=== PATIENT | male | born 1975 | race Caucasian/White ===

== ENCOUNTER 2022-12-08 11:15 | Outpatient (RCR) | payer OTHER, MEDICAID, SELFPAY ==
--- NOTE | 2022-10-06 16:41 | PT.OIE ---
Current Diagnoses Muscle weakness (generalized) (10/06/22) Strain of muscle, fascia and tendon of lower back, subsequent encounter (10/06/22) Visit Care Team Role Provider Type Allen Stauffer MD Attending Provider Non-Staff Family Provider Primary Care Provider Referring Provider Specialty: Family Practice Address: [address] , [place], [address] Email: Physical Therapy Initial Evaluation PT-OP-A Visit Information Start: 10/02/22 17:42 Freq: Status: Active Protocol: Document 10/06/22 14:34 LRN (Rec: 10/06/22 16:34 LRN [id number]) Out-Patient Physical Therapy Visit Information Visit Information Visit Type Initial Evaluation Visit Start Time 14:34 Visit Stop Time 15:31 Total Visit Minutes 57 Visit Number 1 Evaluation Information Evaluation Date 10/06/22 Precautions Precautions Depression controlled by meds, Panic disorder, OCD, High blood pressure currently under control. PT-OP-B Current Condition Start: 10/02/22 17:42 Freq: Status: Active Protocol: Document 10/06/22 14:34 LRN (Rec: 10/06/22 16:34 LRN [id number]) Current Condition History of Current Condition Onset Date 11 weeks ago. Current Complaints Can't lift anything heavy and restricted in lifting. Not back to normal. History of Current Condition LBP ranges from 1-8/10 on 0-10 scale with 10 being worst possible pain. Pt states for the first month was sore, but after 1 month slept on new mattress and woke with terrible LBP. Stopped sleeping on new bed and is now on air mattress. Has improved ability to sleep and can now sleep all night. He has been doing cobra (reduces his pain) and dog yoga pose exercises. He has been practicing good posture and not lifting anything too heavy (25#, case of water is too heavy). Leaning forward on bike increases pain R handed. Prior Treatments and Tests No testing Developmental History Developmental History Helping friend move furnature and while lowering the furnature felt sharp pain in low back. Knew he wasn't using good Body mechanics because the chair was awkward and heavy. States he has tried to help his roomate move his mattress but was not able due to LBP. Treatment Goals Patient/Caregiver Goals Pt would like to strengthen back area, and be able to ride his bike on his stationary corporate sales trainer. Prior Functional Status Baseline Function- ADL's Independent Baseline Function- Mobility Independent Baseline Function- Work/School Unemployed Baseline Function- Recreation/Hobbies Play guitar Baseline Function- Other Lift heavy objects without burning sensation in low back. Be able to help roomate move things around the house (bed frame) without onset of burning back pain. Current Functional Impairments (Reported) Functional Limitations- ADL's Lifting 20# or greater. Personal Factors Other Personal Factors That May Effect Psychological disorders ( Therapy/Recovery depression, OCD, panic disorder). PT-OP-C Subjective Start: 10/02/22 17:42 Freq: Status: Active Protocol: Document 10/06/22 14:34 LRN (Rec: 10/06/22 16:34 LRN [id number]) Patient Questionnaires Oswestry Low Back Index Oswestry Score 22 Oswestry Impairment 20 to 39% Impaired (Score 20- 39) OP-PT Pain Assessment Pain Assessment Grid Paper Pain Assessment Grid Completed Yes Location Low Back Pain Location Details Low back at sacral level and sometimes into R buttock Intensity 8 Scale Used Numeric (0 - 10) Description Aching,Burning,Sharp Description- Other Sharp pain into buttock, otherwise burning. Pain Duration With lifting or too active or sleep wrong (on memory foam) Other Pain Alleviating Factors Cobra pose PT-OP-G Mobility & Gait Start: 10/02/22 17:42 Freq: Status: Active Protocol: Document 10/06/22 14:34 LRN (Rec: 10/06/22 16:34 LRN [id number]) OP Mobility Evaluation Bed Mobility Rolling Normal Supine to and from Sit Normal Transfers Sit to Stand Independent Bed to Chair Transfers Independent PT-OP-H Neuro Start: 10/02/22 17:42 Freq: Status: Active Protocol: Document 10/06/22 14:34 LRN (Rec: 10/06/22 16:34 LRN [id number]) Sensation Evaluation Gross Sensation Gross Sensation WNL PT-OP-J Posture/Palpation/Skin Start: 10/02/22 17:42 Freq: Status: Active Protocol: Document 10/06/22 14:34 LRN (Rec: 10/06/22 16:34 LRN [id number]) Posture Evaluation Position Standing Head/C-Spine Posture Forward Head T-Spine Posture Flattened L-Spine Posture Increased Lordosis,Shifted Left Shoulder Posture (R) Elevated Scapula Posture (R) Elevated Arm Posture (L) Internally Rotated,(R) Internally Rotated Pelvis Posture Anteriorly Tilted Weight Distribution Balanced Comments Posture Comments Soft tissue bump in R UT mid position. Palpation Assessment Location Low back Palpation Location R paraspinals, Spinous processes of lumbar spine. Palpation Findings Soft Tissue Tightness Palpation Details Tender at spinous process L4 with PA glide. PT-OP-K Range of Motion Start: 10/02/22 17:42 Freq: Status: Active Protocol: Document 10/06/22 14:34 LRN (Rec: 10/06/22 16:34 LRN [id number]) Lumbar Spine Range of Motion Lumbar Spine Active Degrees Flexion 65 Extension 7 Rotation Left 3 Rotation Right 3 Lateral Flexion Left 5 ROM Limitations Soft Tissue Tightness Comments Trunk Flexion is 65 deg?s with 52 deg?s hip flexion, Trunk extension is 7deg?s with 2 deg?s hip extension. Hip Goniometric Range of Motion Hip Right Passive Testing Position Supine Straight Leg Raise 65 Internal Rotation 20 External Rotation 65 Left Passive Testing Position Supine Straight Leg Raise 65 Internal Rotation 20 External Rotation 65 PT-OP-L Special Tests Start: 10/02/22 17:42 Freq: Status: Active Protocol: Document 10/06/22 14:34 LRN (Rec: 10/06/22 16:34 LRN [id number]) Special Tests Lumbar Spine Special Tests Wayne Test Results - bilaterally Prone Press Up Test Results + Comments Decreased discomfort Manual Traction Test Results + Comments Decreased LBP Straight Leg Raise Test Results 65 bilaterally Comments Hamstring tightness Slump Test Results + Comments R LB & hip pain Standing Flexion Test Results - Comments No change with pain Vertical Spine Loading Test Results - Comments No change with pain PT-OP-M Strength Start: 10/02/22 17:42 Freq: Status: Active Protocol: Document 10/06/22 14:34 LRN (Rec: 10/06/22 16:34 LRN [id number]) Trunk Strength Trunk Manual Muscle Testing Testing Position Supine, Sidelie & Prone Core Stabilization Pt not able to maintain core stability with MMT of LE's. Hip Strength Hip Manual Muscle Testing Right Flexion (L2) 5 Normal Extension (S1) 5 Normal Abduction 5 Normal Adduction 5 Normal Left Flexion (L2) 5 Normal Extension (S1) 5 Normal Abduction 5 Normal Adduction 5 Normal PT-OP-Q Treatments Start: 10/02/22 17:42 Freq: Status: Active Protocol: Document 10/06/22 14:34 LRN (Rec: 10/06/22 16:34 LRN [id number]) Self-Care/Home Management Treatment Education Patient Education Body Mechanics,Safety Other Education Discussed results of evaluation, goals, and plan of care (POC). Pt agreeable to goals and POC. Discussed pt questions regarding yoga poses for appropriateness (bird dog, MILAN , upward dog). Activities Self-Care/Home Management Activities I/S pt in proper mechanics of transfers stand<>sit<>sup. I/ S pt in engagement of abdominal tightening prior to transfers. Discussed briefly proper lifting mechanics (load close to body, no twisting, getting close to objects, avoiding bending, use of legs to waste picker objects). PT-OP-T Assessment and Plan Start: 10/02/22 17:42 Freq: Status: Active Protocol: Document 10/06/22 14:34 LRN (Rec: 10/06/22 16:34 LRN [id number]) Physical Therapy Assessment Rehab Potential Rehabilitation Potential Good Evaluation Complexity Number of Personal Factors/Comorbidities 1-2 Number of Body Systems Impaired 4 or More Clinical Presentation at Evaluation Evolving Impairments Impairments Activity Tolerance,Pain,ROM, Soft Tissue Mobility,Strength, Transfers Goals Three Impairment Decreased strength Impairment Can't help roomate move things due to restriction in lifting things over 20#. Short Term Goal (STG) Pt will be able to maintain core stability with LE strengthening. STG Duration 11/07/22 Adjunct Political Science Instructor Goal (LTG) Strengthen pt's back to be able to lift 20# or greater without onset of burning pain. LTG Duration 12/12/22 Two Impairment LB Pain, R buttock pain Impairment Pain rated 1-8/10. Pain is 1/10 unless lifting/ moving/ride bike (<30 secs tolerated). Short Term Goal (STG) Pt will be educated in use of modalities at home (heat/ice). STG Duration 10/10/23 [facility] Goal (LTG) Be able to tolerate riding in racing bike position (on pt's stationary corporate sales trainer) for 10 minutes. LTG Duration 12/12/22 One Impairment Lacks appropriate self care HEP. Short Term Goal (STG) Pt will be educated in proper body mechanics for transfer and ADLs, and proper sitting and standing posture. STG Duration 10/17/22 [facility] Goal (LTG) Independent with a self care HEP of core/pelvic stabilization and hip stretches. LTG Duration 12/12/22 Assessment Summary Assessment Pt presents with LBP probably of soft tissue origin. The pt reports much improvement in the past week with reduction of his pain intensity and region and improved function. He shows symptoms of lumbar neural involvement with + slump and traction test. He appears to have centralized his R hip pain to his low back . He has decreased trunk & hip mobility and has core weakness limiting his function and ability to exercise. The pt will benefit from skilled physical therapy for focus on decreasing soft tissue muscle guarding and pain, improving lumbar/hip mobility and for hip/core/pelvic stabilization. Pt education will be focused on proper transfers, self care and home exercise. Physical Therapy Plan Frequency and Duration Frequency of Treatment 2x/Week Plan of Care Start Date 10/06/22 Plan of Care End Date 12/12/22 Therapeutic Interventions Therapeutic Interventions Home Exercise Program,Joint Mobilizations,Manual Therapy, Neuromuscular Re-education, Patient/Caregiver Education, Self-Care/Home Management,Soft Tissue Mobilization, Therapeutic Activities, Therapeutic Exercises Next Visit Focus/Plan Next Note Type Treatment Note Next Visit Plan Assess hip ER/IR strength. Review and issue handouts for education in proper body mechanics for transfer and ADLs, and proper sitting and standing posture. Manual lumbar traction & thoracic mobs. HEP: Correction for lumbar shift, LE neural, Piriformis/lateral hip stretches, trunk extension strengthening and core stab, End MH/IFES [L4-L5]. POC: Probable L4-L5 bulging disc rehabilitation. Decrease soft tissue muscle guarding and pain, improve lumbar (rot and cautiously with flex)/hip (PSLR, rot) mobility and for core/pelvic/hip stabilization. Pt education will be focused on proper transfers, modality use, and home exercises.
--- NOTE | 2022-10-06 16:46 | PT.OPPOC ---
Physical, Occupational & Speech Therapy At [facility] Current Diagnoses Muscle weakness (generalized) (10/06/22) Strain of muscle, fascia and tendon of lower back, subsequent encounter (10/06/22) Visit Care Team Role Provider Type Allen Stauffer MD Attending Provider Non-Staff Family Provider Primary Care Provider Referring Provider Specialty: Family Practice Address: [address] [facility], [place], [address] Email: Plan Of Care PT-OP-T Assessment and Plan Start: 10/02/22 17:42 Freq: Status: Active Protocol: Document 10/06/22 14:34 LRN (Rec: 10/06/22 16:34 LRN [id number]) Physical Therapy Assessment Rehab Potential Rehabilitation Potential Good Evaluation Complexity Number of Personal Factors/Comorbidities 1-2 Number of Body Systems Impaired 4 or More Clinical Presentation at Evaluation Evolving Impairments Impairments Activity Tolerance,Pain,ROM, Soft Tissue Mobility,Strength, Transfers Goals Three Impairment Decreased strength Impairment Can't help roomate move things due to restriction in lifting things over 20#. Short Term Goal (STG) Pt will be able to maintain core stability with LE strengthening. STG Duration 11/07/22 Halfway Goal (LTG) Strengthen pt's back to be able to lift 20# or greater without onset of burning pain. LTG Duration 12/12/22 Two Impairment LB Pain, R buttock pain Impairment Pain rated 1-8/10. Pain is 1/10 unless lifting/ moving/ride bike (<30 secs tolerated). Short Term Goal (STG) Pt will be educated in use of modalities at home (heat/ice). STG Duration 10/10/23 Halfway Goal (LTG) Be able to tolerate riding in racing bike position (on pt's stationary first aid trainer) for 10 minutes. LTG Duration 12/12/22 One Impairment Lacks appropriate self care HEP. Short Term Goal (STG) Pt will be educated in proper body mechanics for transfer and ADLs, and proper sitting and standing posture. STG Duration 10/17/22 [employer] Goal (LTG) Independent with a self care HEP of core/pelvic stabilization and hip stretches. LTG Duration 12/12/22 Assessment Summary Assessment Pt presents with LBP probably of soft tissue origin. The pt reports much improvement in the past week with reduction of his pain intensity and region and improved function. He shows symptoms of lumbar neural involvement with + slump and traction test. He appears to have centralized his R hip pain to his low back . He has decreased trunk & hip mobility and has core weakness limiting his function and ability to exercise. The pt will benefit from skilled physical therapy for focus on decreasing soft tissue muscle guarding and pain, improving lumbar/hip mobility and for hip/core/pelvic stabilization. Pt education will be focused on proper transfers, self care and home exercise. Physical Therapy Plan Frequency and Duration Frequency of Treatment 2x/Week Plan of Care Start Date 10/06/22 Plan of Care End Date 12/12/22 Therapeutic Interventions Therapeutic Interventions Home Exercise Program,Joint Mobilizations,Manual Therapy, Neuromuscular Re-education, Patient/Caregiver Education, Self-Care/Home Management,Soft Tissue Mobilization, Therapeutic Activities, Therapeutic Exercises Next Visit Focus/Plan Next Note Type Treatment Note Next Visit Plan Assess hip ER/IR strength. Review and issue handouts for education in proper body mechanics for transfer and ADLs, and proper sitting and standing posture. Manual lumbar traction & thoracic mobs. HEP: Correction for lumbar shift, LE neural, Piriformis/lateral hip stretches, trunk extension strengthening and core stab, End MH/IFES [L4-L5]. POC: Probable L4-L5 bulging disc rehabilitation. Decrease soft tissue muscle guarding and pain, improve lumbar (rot and cautiously with flex)/hip (PSLR, rot) mobility and for core/pelvic/hip stabilization. Pt education will be focused on proper transfers, modality use, and home exercises. Plan of Care Dates Plan of Care Start Date 10/06/22 Plan of Care End Date 12/12/22 Electronically Signed by: Karen Gomez, PT 10/06/22 4728 If you are in agreement with this Plan of Care, please return a signed and dated copy. I have reviewed this Plan of Care and certify that the skilled therapy services above are required to meet the patient?s needs. Physician Signature Date Printed Name and Credentials Clinical Instructor Signature Printed Name and Credentials
--- NOTE | 2022-10-09 12:18 | PT.OTN ---
Current Diagnoses Muscle weakness (generalized) (10/09/22) Strain of muscle, fascia and tendon of lower back, subsequent encounter (10/09/22) Physical Therapy Treatment Note PT-OP-A Visit Information Start: 10/02/22 17:42 Freq: Status: Active Protocol: Document 10/09/22 11:18 LRN (Rec: 10/09/22 12:16 LRN [id number]) Out-Patient Physical Therapy Visit Information Visit Information Visit Type Treatment Note Visit Start Time 11:19 Visit Stop Time 12:06 Total Visit Minutes 47 Visit Number 2 Evaluation Information Evaluation Date 10/06/22 Precautions Precautions Depression controlled by meds, Panic disorder, OCD, High blood pressure currently under control. PT-OP-B Current Condition Start: 10/02/22 17:42 Freq: Status: Active Protocol: Document 10/06/22 14:34 LRN (Rec: 10/06/22 16:34 LRN [id number]) Current Condition History of Current Condition Onset Date 11 weeks ago. Current Complaints Can't lift anything heavy and restricted in lifting. Not back to normal. History of Current Condition LBP ranges from 1-8/10 on 0-10 scale with 10 being worst possible pain. Pt states for the first month was sore, but after 1 month slept on new mattress and woke with terrible LBP. Stopped sleeping on new bed and is now on air mattress. Has improved ability to sleep and can now sleep all night. He has been doing cobra (reduces his pain) and dog yoga pose exercises. He has been practicing good posture and not lifting anything too heavy (25#, case of water is too heavy). Leaning forward on bike increases pain R handed. Prior Treatments and Tests No testing Developmental History Developmental History Helping friend move furnature and while lowering the furnature felt sharp pain in low back. Knew he wasn't using good Body mechanics because the chair was awkward and heavy. States he has tried to help his roomate move his mattress but was not able due to LBP. Treatment Goals Patient/Caregiver Goals Pt would like to strengthen back area, and be able to ride his bike on his stationary new product trainer. Prior Functional Status Baseline Function- ADL's Independent Baseline Function- Mobility Independent Baseline Function- Work/School Unemployed Baseline Function- Recreation/Hobbies Play guitar Baseline Function- Other Lift heavy objects without burning sensation in low back. Be able to help roomate move things around the house (bed frame) without onset of burning back pain. Current Functional Impairments (Reported) Functional Limitations- ADL's Lifting 20# or greater. Personal Factors Other Personal Factors That May Effect Psychological disorders ( Therapy/Recovery depression, OCD, panic disorder). PT-OP-C Subjective Start: 10/02/22 17:42 Freq: Status: Active Protocol: Document 10/09/22 11:18 LRN (Rec: 10/09/22 12:16 LRN [id number]) OP-PT Subjective Patient Comments Patient Comments Pain LB rated 1/10. c/o pain of LB and slightly into the R hip. Patient Reported Progress Same PT-OP-G Mobility & Gait Start: 10/02/22 17:42 Freq: Status: Active Protocol: Document 10/06/22 14:34 LRN (Rec: 10/06/22 16:34 LRN [id number]) OP Mobility Evaluation Bed Mobility Rolling Normal Supine to and from Sit Normal Transfers Sit to Stand Independent Bed to Chair Transfers Independent PT-OP-H Neuro Start: 10/02/22 17:42 Freq: Status: Active Protocol: Document 10/06/22 14:34 LRN (Rec: 10/06/22 16:34 LRN [id number]) Sensation Evaluation Gross Sensation Gross Sensation WNL PT-OP-J Posture/Palpation/Skin Start: 10/02/22 17:42 Freq: Status: Active Protocol: Document 10/06/22 14:34 LRN (Rec: 10/06/22 16:34 LRN [id number]) Posture Evaluation Position Standing Head/C-Spine Posture Forward Head T-Spine Posture Flattened L-Spine Posture Increased Lordosis,Shifted Left Shoulder Posture (R) Elevated Scapula Posture (R) Elevated Arm Posture (L) Internally Rotated,(R) Internally Rotated Pelvis Posture Anteriorly Tilted Weight Distribution Balanced Comments Posture Comments Soft tissue bump in R UT mid position. Palpation Assessment Location Low back Palpation Location R paraspinals, Spinous processes of lumbar spine. Palpation Findings Soft Tissue Tightness Palpation Details Tender at spinous process L4 with PA glide. PT-OP-K Range of Motion Start: 10/02/22 17:42 Freq: Status: Active Protocol: Document 10/06/22 14:34 LRN (Rec: 10/06/22 16:34 LRN [id number]) Lumbar Spine Range of Motion Lumbar Spine Active Degrees Flexion 65 Extension 7 Rotation Left 3 Rotation Right 3 Lateral Flexion Left 5 ROM Limitations Soft Tissue Tightness Comments Trunk Flexion is 65 deg?s with 52 deg?s hip flexion, Trunk extension is 7deg?s with 2 deg?s hip extension. Hip Goniometric Range of Motion Hip Right Passive Testing Position Supine Straight Leg Raise 65 Internal Rotation 20 External Rotation 65 Left Passive Testing Position Supine Straight Leg Raise 65 Internal Rotation 20 External Rotation 65 PT-OP-L Special Tests Start: 10/02/22 17:42 Freq: Status: Active Protocol: Document 10/06/22 14:34 LRN (Rec: 10/06/22 16:34 LRN [id number]) Special Tests Lumbar Spine Special Tests Wayne Test Results - bilaterally Prone Press Up Test Results + Comments Decreased discomfort Manual Traction Test Results + Comments Decreased LBP Straight Leg Raise Test Results 65 bilaterally Comments Hamstring tightness Slump Test Results + Comments R LB & hip pain Standing Flexion Test Results - Comments No change with pain Vertical Spine Loading Test Results - Comments No change with pain PT-OP-M Strength Start: 10/02/22 17:42 Freq: Status: Active Protocol: Document 10/09/22 11:18 LRN (Rec: 10/09/22 12:16 LRN [id number]) Hip Strength Hip Manual Muscle Testing Right External Rotation 4 Good Internal Rotation 3+ Fair+ Left External Rotation 4 Good Internal Rotation 3+ Fair+ PT-OP-Q Treatments Start: 10/02/22 17:42 Freq: Status: Active Protocol: Document 10/09/22 11:18 LRN (Rec: 10/09/22 12:16 LRN [id number]) Therapeutic Exercises Prone Exercises TA tightnening Prone Exercise Name TA tightening Reps/Minutes 10SH x 10 Press Ups Prone Exercise Name Prone press ups Reps/Minutes 10x Comments Reduction of pain slightly from L/S traction Other Exercises Transfer training Other Exercise Name Review of proper transfer training for Prone>Sit>Stand Comments Cuing needed for pt to keep TA tight and move legs together. Manual Therapy Treatment Soft Tissue Mobilization Sacral Balancing Body Location Sacrum/innominates Mobilization Type Myofascial Release,Sustained Pressure Intensity/Depth Superficial to Moderate Body Position Prone Comments Infer mob & PA of R Sacral sulcus. PA of R TINA. PA of R Ishium 6 pt balancing of sacrum. Manual Traction Lumbar Details Minimal L/S traction Body Position Supine Reps/Duration 2' Comments Increase in pain with traction of minimal amount. Self-Care/Home Management Treatment Education Other Education Education in proper body mechanics for transfer and ADLs, and proper sitting and standing posture. Activities Self-Care/Home Management Activities Reviewed and issued handouts for education in proper body mechanics for transfer and ADLs, and proper sitting and standing posture. PT-OP-T Assessment and Plan Start: 10/02/22 17:42 Freq: Status: Active Protocol: Document 10/09/22 11:18 LRN (Rec: 10/09/22 12:16 LRN [id number]) Physical Therapy Assessment Goals Three Impairment Decreased strength Impairment Can't help roomate move things due to restriction in lifting things over 20#. Short Term Goal (STG) Pt will be able to maintain core stability with LE strengthening. STG Duration 11/07/22 [employer] Goal (LTG) Strengthen pt's back to be able to lift 20# or greater without onset of burning pain. LTG Duration 12/12/22 Two Impairment LB Pain, R buttock pain Impairment Pain rated 1-8/10. Pain is 1/10 unless lifting/ moving/ride bike (<30 secs tolerated). Short Term Goal (STG) Pt will be educated in use of modalities at home (heat/ice). STG Duration 10/10/23 [facility] Goal (LTG) Be able to tolerate riding in racing bike position (on pt's stationary new product trainer) for 10 minutes. LTG Duration 12/12/22 One Impairment Lacks appropriate self care HEP. Short Term Goal (STG) Pt will be educated in proper body mechanics for transfer and ADLs, and proper sitting and standing posture. STG Duration 10/17/22 (10/09/22: MET GOAL) [employer] Goal (LTG) Independent with a self care HEP of core/pelvic stabilization and hip stretches. LTG Duration 12/12/22 Assessment Summary Assessment LBP probably of soft tissue origin, but sacrum and thoracolumbar spine in L rotation. LBP increased with manual L/S traciton. Pt hip ER is slightly weak on the left, and hip IR is weak bilaterally. Pt very receptive to posture/body mechanics/ADL training. Able to mostly balance Sacrum, Sacral sulcus restriction with inferior glide,mostly R. Physical Therapy Plan Frequency and Duration Frequency of Treatment 2x/Week Plan of Care Start Date 10/06/22 Plan of Care End Date 12/12/22 Next Visit Focus/Plan Next Note Type Treatment Note Next Visit Plan Educated pt in use of modalities at home (heat/ice). Manual thoracic mobs to correct R rotation if needed. HEP: Correction for lumbar shift, LE neural/hamstring stretch, Piriformis/lateral hip stretches, Carson ext program (trunk extension strengthening) and core stab, Try End MH/IFES [L4-L5]. POC: Probable L4-L5 bulging disc rehabilitation. Decrease soft tissue muscle guarding and pain, improve lumbar (rot and cautiously with flex)/hip (PSLR, rot) mobility and for core/pelvic/hip stabilization. Pt education will be focused on proper transfers, modality use, and home exercises.
--- NOTE | 2022-10-13 14:50 | PT.OTN ---
Current Diagnoses Muscle weakness (generalized) (10/13/22) Strain of muscle, fascia and tendon of lower back, subsequent encounter (10/13/22) Physical Therapy Treatment Note PT-OP-A Visit Information Start: 10/02/22 17:42 Freq: Status: Active Protocol: Document 10/13/22 13:49 LRN (Rec: 10/13/22 14:33 LRN [id number]) Out-Patient Physical Therapy Visit Information Visit Information Visit Type Treatment Note Visit Start Time 13:49 Visit Stop Time 14:32 Total Visit Minutes 43 Visit Number 3 Evaluation Information Evaluation Date 10/06/22 Precautions Precautions Depression controlled by meds, Panic disorder, OCD, High blood pressure currently under control. PT-OP-B Current Condition Start: 10/02/22 17:42 Freq: Status: Active Protocol: Document 10/06/22 14:34 LRN (Rec: 10/06/22 16:34 LRN [id number]) Current Condition History of Current Condition Onset Date 11 weeks ago. Current Complaints Can't lift anything heavy and restricted in lifting. Not back to normal. History of Current Condition LBP ranges from 1-8/10 on 0-10 scale with 10 being worst possible pain. Pt states for the first month was sore, but after 1 month slept on new mattress and woke with terrible LBP. Stopped sleeping on new bed and is now on air mattress. Has improved ability to sleep and can now sleep all night. He has been doing cobra (reduces his pain) and dog yoga pose exercises. He has been practicing good posture and not lifting anything too heavy (25#, case of water is too heavy). Leaning forward on bike increases pain R handed. Prior Treatments and Tests No testing Developmental History Developmental History Helping friend move furnature and while lowering the furnature felt sharp pain in low back. Knew he wasn't using good Body mechanics because the chair was awkward and heavy. States he has tried to help his roomate move his mattress but was not able due to LBP. Treatment Goals Patient/Caregiver Goals Pt would like to strengthen back area, and be able to ride his bike on his stationary crew trainer. Prior Functional Status Baseline Function- ADL's Independent Baseline Function- Mobility Independent Baseline Function- Work/School Unemployed Baseline Function- Recreation/Hobbies Play guitar Baseline Function- Other Lift heavy objects without burning sensation in low back. Be able to help roomate move things around the house (bed frame) without onset of burning back pain. Current Functional Impairments (Reported) Functional Limitations- ADL's Lifting 20# or greater. Personal Factors Other Personal Factors That May Effect Psychological disorders ( Therapy/Recovery depression, OCD, panic disorder). PT-OP-C Subjective Start: 10/02/22 17:42 Freq: Status: Active Protocol: Document 10/13/22 13:49 LRN (Rec: 10/13/22 14:33 LRN [id number]) OP-PT Subjective Patient Comments Patient Comments States since last treatment, his LB is not as tight. Pain in LB is /10. PT-OP-G Mobility & Gait Start: 10/02/22 17:42 Freq: Status: Active Protocol: Document 10/06/22 14:34 LRN (Rec: 10/06/22 16:34 LRN [id number]) OP Mobility Evaluation Bed Mobility Rolling Normal Supine to and from Sit Normal Transfers Sit to Stand Independent Bed to Chair Transfers Independent PT-OP-H Neuro Start: 10/02/22 17:42 Freq: Status: Active Protocol: Document 10/06/22 14:34 LRN (Rec: 10/06/22 16:34 LRN [id number]) Sensation Evaluation Gross Sensation Gross Sensation WNL PT-OP-J Posture/Palpation/Skin Start: 10/02/22 17:42 Freq: Status: Active Protocol: Document 10/06/22 14:34 LRN (Rec: 10/06/22 16:34 LRN [id number]) Posture Evaluation Position Standing Head/C-Spine Posture Forward Head T-Spine Posture Flattened L-Spine Posture Increased Lordosis,Shifted Left Shoulder Posture (R) Elevated Scapula Posture (R) Elevated Arm Posture (L) Internally Rotated,(R) Internally Rotated Pelvis Posture Anteriorly Tilted Weight Distribution Balanced Comments Posture Comments Soft tissue bump in R UT mid position. Palpation Assessment Location Low back Palpation Location R paraspinals, Spinous processes of lumbar spine. Palpation Findings Soft Tissue Tightness Palpation Details Tender at spinous process L4 with PA glide. PT-OP-K Range of Motion Start: 10/02/22 17:42 Freq: Status: Active Protocol: Document 10/06/22 14:34 LRN (Rec: 10/06/22 16:34 LRN [id number]) Lumbar Spine Range of Motion Lumbar Spine Active Degrees Flexion 65 Extension 7 Rotation Left 3 Rotation Right 3 Lateral Flexion Left 5 ROM Limitations Soft Tissue Tightness Comments Trunk Flexion is 65 deg?s with 52 deg?s hip flexion, Trunk extension is 7deg?s with 2 deg?s hip extension. Hip Goniometric Range of Motion Hip Right Passive Testing Position Supine Straight Leg Raise 65 Internal Rotation 20 External Rotation 65 Left Passive Testing Position Supine Straight Leg Raise 65 Internal Rotation 20 External Rotation 65 PT-OP-L Special Tests Start: 10/02/22 17:42 Freq: Status: Active Protocol: Document 10/06/22 14:34 LRN (Rec: 10/06/22 16:34 LRN [id number]) Special Tests Lumbar Spine Special Tests Wayne Test Results - bilaterally Prone Press Up Test Results + Comments Decreased discomfort Manual Traction Test Results + Comments Decreased LBP Straight Leg Raise Test Results 65 bilaterally Comments Hamstring tightness Slump Test Results + Comments R LB & hip pain Standing Flexion Test Results - Comments No change with pain Vertical Spine Loading Test Results - Comments No change with pain PT-OP-M Strength Start: 10/02/22 17:42 Freq: Status: Active Protocol: Document 10/09/22 11:18 LRN (Rec: 10/09/22 12:16 LRN [id number]) Hip Strength Hip Manual Muscle Testing Right External Rotation 4 Good Internal Rotation 3+ Fair+ Left External Rotation 4 Good Internal Rotation 3+ Fair+ PT-OP-Q Treatments Start: 10/02/22 17:42 Freq: Status: Active Protocol: Document 10/13/22 13:49 LRN (Rec: 10/13/22 14:33 LRN [id number]) Therapeutic Exercises Supine Exercises LE neural/Hamstring stretch Supine Exercise Name LE neural/HS stretch, L>R Side bilateral Reps/Minutes 5' Comments Extra time to determine max tolerated stretch. Prone Exercises TA tightnening Prone Exercise Name TA tightening Reps/Minutes 10SH x 10 Press Ups Prone Exercise Name Prone press ups Reps/Minutes 10x Comments Reduction of pain slightly from L/S traction Manual Therapy Treatment Soft Tissue Mobilization Sacral Balancing Body Location Sacrum/innominates Mobilization Type Myofascial Release,Sustained Pressure Intensity/Depth Superficial to Moderate Body Position Prone Comments Infer mob & PA of R Sacral sulcus. PA of R TINA. PA of R Ishium 6 pt balancing of sacrum. Self-Care/Home Management Treatment Education Other Education I/S pt in stretch to R UT with c/s SB stretch. Activities Self-Care/Home Management Activities Issued & reviewed HEP: LE neural/hamstring, Piriformis, lateral hip, and Iliopsoas stretch. PT-OP-T Assessment and Plan Start: 10/02/22 17:42 Freq: Status: Active Protocol: Document 10/13/22 13:49 LRN (Rec: 10/13/22 14:33 LRN [id number]) Physical Therapy Assessment Goals Three Impairment Decreased strength Impairment Can't help roomate move things due to restriction in lifting things over 20#. Short Term Goal (STG) Pt will be able to maintain core stability with LE strengthening. STG Duration 11/07/22 [facility] Goal (LTG) Strengthen pt's back to be able to lift 20# or greater without onset of burning pain. LTG Duration 12/12/22 Two Impairment LB Pain, R buttock pain Impairment Pain rated 1-8/10. Pain is 1/10 unless lifting/ moving/ride bike (<30 secs tolerated). Short Term Goal (STG) Pt will be educated in use of modalities at home (heat/ice). STG Duration 10/10/23 Director Utilization Management Goal (LTG) Be able to tolerate riding in racing bike position (on pt's stationary crew trainer) for 10 minutes. LTG Duration 12/12/22 One Impairment Lacks appropriate self care HEP. Short Term Goal (STG) Pt will be educated in proper body mechanics for transfer and ADLs, and proper sitting and standing posture. STG Duration 10/17/22 (10/09/22: MET GOAL) [facility] Goal (LTG) Independent with a self care HEP of core/pelvic stabilization and hip stretches. 10/13/22: HEP: LE neural/ hamstring, Piriformis, lateral hip, and Iliopsoas stretch. LTG Duration 12/12/22 progressed Progress Towards Goals Progress Comments Progressed HEP. Assessment Summary Assessment No lumbar shift noted. R shoulder is elevated, pt reports hurting it 20 yrs ago. No c/o LBP with hip stretches. Ms tone normalizing in low back and pelvis. Sacrum in mild L rotation with decreased mobility at R Sacral sulcus, corrected with manual therapy. Pt is probably ready to begin core strengthening and progression towards improving ability to lift and carry objects. His R shoulder is elevated, causing ms imbalance in length/tension ratio of thoracic R vs L paraspinals. Physical Therapy Plan Next Visit Focus/Plan Next Note Type Treatment Note Next Visit Plan Review previously issued HEP of LE neural/hamstring, Piriformis, lateral hip, and Iliopsoas stretch. Educate pt in use of modalities at home (heat/ice). Manual thoracic mobs to correct R rotation if needed. HEP: R UT stretch and scapular depression. Carson ext program (trunk extension strengthening) and core stab, Try End MH/IFES [L4-L5]. POC: Probable L4-L5 bulging disc rehabilitation. Decrease soft tissue muscle guarding and pain, improve lumbar (rot and cautiously with flex)/hip (PSLR, rot) mobility and for core/pelvic/hip stabilization. Pt education will be focused on proper transfers, modality use, and home exercises.
--- NOTE | 2022-10-16 12:15 | PT.OTN ---
Current Diagnoses Muscle weakness (generalized) (10/16/22) Strain of muscle, fascia and tendon of lower back, subsequent encounter (10/16/22) Physical Therapy Treatment Note PT-OP-A Visit Information Start: 10/02/22 17:42 Freq: Status: Active Protocol: Document 10/16/22 11:18 LRN (Rec: 10/16/22 12:12 LRN [id number]) Out-Patient Physical Therapy Visit Information Visit Information Visit Type Treatment Note Visit Start Time 11:18 Visit Stop Time 12:05 Total Visit Minutes 48 Visit Number 4 Evaluation Information Evaluation Date 10/06/22 Precautions Precautions Depression controlled by meds, Panic disorder, OCD, High blood pressure currently under control. PT-OP-B Current Condition Start: 10/02/22 17:42 Freq: Status: Active Protocol: Document 10/06/22 14:34 LRN (Rec: 10/06/22 16:34 LRN [id number]) Current Condition History of Current Condition Onset Date 11 weeks ago. Current Complaints Can't lift anything heavy and restricted in lifting. Not back to normal. History of Current Condition LBP ranges from 1-8/10 on 0-10 scale with 10 being worst possible pain. Pt states for the first month was sore, but after 1 month slept on new mattress and woke with terrible LBP. Stopped sleeping on new bed and is now on air mattress. Has improved ability to sleep and can now sleep all night. He has been doing cobra (reduces his pain) and dog yoga pose exercises. He has been practicing good posture and not lifting anything too heavy (25#, case of water is too heavy). Leaning forward on bike increases pain R handed. Prior Treatments and Tests No testing Developmental History Developmental History Helping friend move furnature and while lowering the furnature felt sharp pain in low back. Knew he wasn't using good Body mechanics because the chair was awkward and heavy. States he has tried to help his roomate move his mattress but was not able due to LBP. Treatment Goals Patient/Caregiver Goals Pt would like to strengthen back area, and be able to ride his bike on his stationary systems trainer. Prior Functional Status Baseline Function- ADL's Independent Baseline Function- Mobility Independent Baseline Function- Work/School Unemployed Baseline Function- Recreation/Hobbies Play guitar Baseline Function- Other Lift heavy objects without burning sensation in low back. Be able to help roomate move things around the house (bed frame) without onset of burning back pain. Current Functional Impairments (Reported) Functional Limitations- ADL's Lifting 20# or greater. Personal Factors Other Personal Factors That May Effect Psychological disorders ( Therapy/Recovery depression, OCD, panic disorder). PT-OP-C Subjective Start: 10/02/22 17:42 Freq: Status: Active Protocol: Document 10/16/22 11:18 LRN (Rec: 10/16/22 12:12 LRN [id number]) OP-PT Subjective Patient Comments Patient Comments Thinks the stretches are helping because there are times it feels normal and times it feels better. Currently R LBP is 1/10 in R PSIS. States was pulling trash can out and the R LB didn't hurt. PT-OP-G Mobility & Gait Start: 10/02/22 17:42 Freq: Status: Active Protocol: Document 10/06/22 14:34 LRN (Rec: 10/06/22 16:34 LRN [id number]) OP Mobility Evaluation Bed Mobility Rolling Normal Supine to and from Sit Normal Transfers Sit to Stand Independent Bed to Chair Transfers Independent PT-OP-H Neuro Start: 10/02/22 17:42 Freq: Status: Active Protocol: Document 10/06/22 14:34 LRN (Rec: 10/06/22 16:34 LRN [id number]) Sensation Evaluation Gross Sensation Gross Sensation WNL PT-OP-J Posture/Palpation/Skin Start: 10/02/22 17:42 Freq: Status: Active Protocol: Document 10/06/22 14:34 LRN (Rec: 10/06/22 16:34 LRN [id number]) Posture Evaluation Position Standing Head/C-Spine Posture Forward Head T-Spine Posture Flattened L-Spine Posture Increased Lordosis,Shifted Left Shoulder Posture (R) Elevated Scapula Posture (R) Elevated Arm Posture (L) Internally Rotated,(R) Internally Rotated Pelvis Posture Anteriorly Tilted Weight Distribution Balanced Comments Posture Comments Soft tissue bump in R UT mid position. Palpation Assessment Location Low back Palpation Location R paraspinals, Spinous processes of lumbar spine. Palpation Findings Soft Tissue Tightness Palpation Details Tender at spinous process L4 with PA glide. PT-OP-K Range of Motion Start: 10/02/22 17:42 Freq: Status: Active Protocol: Document 10/06/22 14:34 LRN (Rec: 10/06/22 16:34 LRN [id number]) Lumbar Spine Range of Motion Lumbar Spine Active Degrees Flexion 65 Extension 7 Rotation Left 3 Rotation Right 3 Lateral Flexion Left 5 ROM Limitations Soft Tissue Tightness Comments Trunk Flexion is 65 deg?s with 52 deg?s hip flexion, Trunk extension is 7deg?s with 2 deg?s hip extension. Hip Goniometric Range of Motion Hip Right Passive Testing Position Supine Straight Leg Raise 65 Internal Rotation 20 External Rotation 65 Left Passive Testing Position Supine Straight Leg Raise 65 Internal Rotation 20 External Rotation 65 PT-OP-L Special Tests Start: 10/02/22 17:42 Freq: Status: Active Protocol: Document 10/06/22 14:34 LRN (Rec: 10/06/22 16:34 LRN [id number]) Special Tests Lumbar Spine Special Tests Wayne Test Results - bilaterally Prone Press Up Test Results + Comments Decreased discomfort Manual Traction Test Results + Comments Decreased LBP Straight Leg Raise Test Results 65 bilaterally Comments Hamstring tightness Slump Test Results + Comments R LB & hip pain Standing Flexion Test Results - Comments No change with pain Vertical Spine Loading Test Results - Comments No change with pain PT-OP-M Strength Start: 10/02/22 17:42 Freq: Status: Active Protocol: Document 10/09/22 11:18 LRN (Rec: 10/09/22 12:16 LRN [id number]) Hip Strength Hip Manual Muscle Testing Right External Rotation 4 Good Internal Rotation 3+ Fair+ Left External Rotation 4 Good Internal Rotation 3+ Fair+ PT-OP-Q Treatments Start: 10/02/22 17:42 Freq: Status: Active Protocol: Document 10/16/22 11:18 LRN (Rec: 10/16/22 12:12 LRN [id number]) Therapeutic Exercises Supine Exercises Ilipsoas stretch Supine Exercise Name Iliopsoas stretch Side bilateral Reps/Minutes 5' Comments Extra time to determine max tolerated stretch Lateral Hip stretch Supine Exercise Name Lateral Hip Stretch Side bilateral Reps/Minutes 4' Comments Cuing for holding time 30 to 60 secs if tolerated Piriformis stretch Supine Exercise Name Piriformis stretch Side bilateral Reps/Minutes 4' Comments Cuing for holding time 30 to 60 secs if tolerated LE neural/Hamstring stretch Supine Exercise Name LE neural/HS stretch, L>R Side bilateral Reps/Minutes 4' Comments Extra time to determine max tolerated stretch. Prone Exercises Press Ups Prone Exercise Name Prone press ups Reps/Minutes 10x Comments Reduction of pain slightly from L/S traction Sitting Exercises R scapular depression Sitting Exercise Name Active scap depresion Side right Equipment Used Mirror Reps/Minutes 8 R UT stretch Sitting Exercise Name L SB of head while Sit on R hand and hold R hand w/opp hand Side right Reps/Minutes 6' Comments Extra time for training and much cuing to get proper stretch Manual Therapy Treatment Joint Mobilizations Lumbar Spine Joint Correction of L rot, and L3 for PA glide Reps/Duration 7' Comments Extra time spent at L3 for PA glide. T/S spine Joint Correction for mild L rot Reps/Duration 6' Self-Care/Home Management Treatment Education Patient Education Pain Management Other Education Educated in use of modalities for pain management and discussed in general RICE treatment for inujuries. Activities Self-Care/Home Management Activities Hand out issued for self RICE treatment for injuries. Issue and reviewed HEP: R UT, Levator scap and Scapular depression ex. PT-OP-T Assessment and Plan Start: 10/02/22 17:42 Freq: Status: Active Protocol: Document 10/16/22 11:18 LRN (Rec: 10/16/22 12:12 LRN [id number]) Physical Therapy Assessment Goals Three Impairment Decreased strength Impairment Can't help roomate move things due to restriction in lifting things over 20#. Short Term Goal (STG) Pt will be able to maintain core stability with LE strengthening. STG Duration 11/07/22 Half-Way Goal (LTG) Strengthen pt's back to be able to lift 20# or greater without onset of burning pain. LTG Duration 12/12/22 Two Impairment LB Pain, R buttock pain Impairment Pain rated 1-8/10. Pain is 1/10 unless lifting/ moving/ride bike (<30 secs tolerated). Short Term Goal (STG) Pt will be educated in use of modalities at home (heat/ice). 10/16/22: Educated in use of modalities for pain management and discussed in general RICE treatment for inujuries. STG Duration 10/10/23 (10/16/22: MET GOAL ) Shook Splicer Goal (LTG) Be able to tolerate riding in racing bike position (on pt's stationary systems trainer) for 10 minutes. LTG Duration 12/12/22 One Impairment Lacks appropriate self care HEP. Short Term Goal (STG) Pt will be educated in proper body mechanics for transfer and ADLs, and proper sitting and standing posture. STG Duration 10/17/22 (10/09/22: MET GOAL) Half-Way Goal (LTG) Independent with a self care HEP of core/pelvic stabilization and hip stretches. 10/13/22: HEP: LE neural/ hamstring, Piriformis, lateral hip, and Iliopsoas stretch; R UT stretch and R scap depression. LTG Duration 12/12/22 progressed Progress Towards Goals Progress Comments Progressing pt education and HEP. Functional improvement. Assessment Summary Assessment Pt able to perform LE neural/ hamstring, Piriformis, lateral hip, and Iliopsoas stretch without difficulty and appeared to know them well; therefore pt is being consistent with his HEP. Physical Therapy Plan Frequency and Duration Frequency of Treatment 2x/Week Plan of Care Start Date 10/06/22 Plan of Care End Date 12/12/22 Next Visit Focus/Plan Next Note Type Treatment Note Next Visit Plan Assess response to manual thoracic mobs to correct L rotation if needed. Review R UT stretch and scapular depression. Carson ext program (trunk extension strengthening) and core stab, Try End MH/IFES [L4-L5]. POC: Probable L4-L5 bulging disc rehabilitation. Decrease soft tissue muscle guarding and pain, improve lumbar (rot and cautiously with flex)/hip (PSLR, rot) mobility and for core/pelvic/hip stabilization. Pt education focus on proper transfers, modality use, and home exercises.
--- NOTE | 2022-10-20 17:25 | PT.OTN ---
Current Diagnoses Muscle weakness (generalized) (10/20/22) Strain of muscle, fascia and tendon of lower back, subsequent encounter (10/20/22) Physical Therapy Treatment Note PT-OP-A Visit Information Start: 10/02/22 17:42 Freq: Status: Active Protocol: Document 10/20/22 13:51 LRN (Rec: 10/20/22 14:37 LRN [id number]) Out-Patient Physical Therapy Visit Information Visit Information Visit Type Treatment Note Visit Start Time 13:51 Visit Stop Time 14:38 Total Visit Minutes 47 Visit Number 5 Evaluation Information Evaluation Date 10/06/22 Precautions Precautions Depression controlled by meds, Panic disorder, OCD, High blood pressure currently under control. PT-OP-B Current Condition Start: 10/02/22 17:42 Freq: Status: Active Protocol: Document 10/06/22 14:34 LRN (Rec: 10/06/22 16:34 LRN [id number]) Current Condition History of Current Condition Onset Date 11 weeks ago. Current Complaints Can't lift anything heavy and restricted in lifting. Not back to normal. History of Current Condition LBP ranges from 1-8/10 on 0-10 scale with 10 being worst possible pain. Pt states for the first month was sore, but after 1 month slept on new mattress and woke with terrible LBP. Stopped sleeping on new bed and is now on air mattress. Has improved ability to sleep and can now sleep all night. He has been doing cobra (reduces his pain) and dog yoga pose exercises. He has been practicing good posture and not lifting anything too heavy (25#, case of water is too heavy). Leaning forward on bike increases pain R handed. Prior Treatments and Tests No testing Developmental History Developmental History Helping friend move furnature and while lowering the furnature felt sharp pain in low back. Knew he wasn't using good Body mechanics because the chair was awkward and heavy. States he has tried to help his roomate move his mattress but was not able due to LBP. Treatment Goals Patient/Caregiver Goals Pt would like to strengthen back area, and be able to ride his bike on his stationary field trainer. Prior Functional Status Baseline Function- ADL's Independent Baseline Function- Mobility Independent Baseline Function- Work/School Unemployed Baseline Function- Recreation/Hobbies Play guitar Baseline Function- Other Lift heavy objects without burning sensation in low back. Be able to help roomate move things around the house (bed frame) without onset of burning back pain. Current Functional Impairments (Reported) Functional Limitations- ADL's Lifting 20# or greater. Personal Factors Other Personal Factors That May Effect Psychological disorders ( Therapy/Recovery depression, OCD, panic disorder). PT-OP-C Subjective Start: 10/02/22 17:42 Freq: Status: Active Protocol: Document 10/20/22 13:51 LRN (Rec: 10/20/22 14:37 LRN [id number]) OP-PT Subjective Patient Comments Patient Comments Pt felt manual therapy was helpful last session and states no change with pain. His R LBP is rated 1/10 as burning pain. PT-OP-G Mobility & Gait Start: 10/02/22 17:42 Freq: Status: Active Protocol: Document 10/06/22 14:34 LRN (Rec: 10/06/22 16:34 LRN [id number]) OP Mobility Evaluation Bed Mobility Rolling Normal Supine to and from Sit Normal Transfers Sit to Stand Independent Bed to Chair Transfers Independent PT-OP-H Neuro Start: 10/02/22 17:42 Freq: Status: Active Protocol: Document 10/06/22 14:34 LRN (Rec: 10/06/22 16:34 LRN [id number]) Sensation Evaluation Gross Sensation Gross Sensation WNL PT-OP-J Posture/Palpation/Skin Start: 10/02/22 17:42 Freq: Status: Active Protocol: Document 10/06/22 14:34 LRN (Rec: 10/06/22 16:34 LRN [id number]) Posture Evaluation Position Standing Head/C-Spine Posture Forward Head T-Spine Posture Flattened L-Spine Posture Increased Lordosis,Shifted Left Shoulder Posture (R) Elevated Scapula Posture (R) Elevated Arm Posture (L) Internally Rotated,(R) Internally Rotated Pelvis Posture Anteriorly Tilted Weight Distribution Balanced Comments Posture Comments Soft tissue bump in R UT mid position. Palpation Assessment Location Low back Palpation Location R paraspinals, Spinous processes of lumbar spine. Palpation Findings Soft Tissue Tightness Palpation Details Tender at spinous process L4 with PA glide. PT-OP-K Range of Motion Start: 10/02/22 17:42 Freq: Status: Active Protocol: Document 10/06/22 14:34 LRN (Rec: 10/06/22 16:34 LRN [id number]) Lumbar Spine Range of Motion Lumbar Spine Active Degrees Flexion 65 Extension 7 Rotation Left 3 Rotation Right 3 Lateral Flexion Left 5 ROM Limitations Soft Tissue Tightness Comments Trunk Flexion is 65 deg?s with 52 deg?s hip flexion, Trunk extension is 7deg?s with 2 deg?s hip extension. Hip Goniometric Range of Motion Hip Right Passive Testing Position Supine Straight Leg Raise 65 Internal Rotation 20 External Rotation 65 Left Passive Testing Position Supine Straight Leg Raise 65 Internal Rotation 20 External Rotation 65 PT-OP-L Special Tests Start: 10/02/22 17:42 Freq: Status: Active Protocol: Document 10/06/22 14:34 LRN (Rec: 10/06/22 16:34 LRN [id number]) Special Tests Lumbar Spine Special Tests Wayne Test Results - bilaterally Prone Press Up Test Results + Comments Decreased discomfort Manual Traction Test Results + Comments Decreased LBP Straight Leg Raise Test Results 65 bilaterally Comments Hamstring tightness Slump Test Results + Comments R LB & hip pain Standing Flexion Test Results - Comments No change with pain Vertical Spine Loading Test Results - Comments No change with pain PT-OP-M Strength Start: 10/02/22 17:42 Freq: Status: Active Protocol: Document 10/09/22 11:18 LRN (Rec: 10/09/22 12:16 LRN [id number]) Hip Strength Hip Manual Muscle Testing Right External Rotation 4 Good Internal Rotation 3+ Fair+ Left External Rotation 4 Good Internal Rotation 3+ Fair+ PT-OP-Q Treatments Start: 10/02/22 17:42 Freq: Status: Active Protocol: Document 10/20/22 13:51 LRN (Rec: 10/20/22 14:37 LRN [id number]) Therapeutic Exercises Supine Exercises Ilipsoas stretch Supine Exercise Name Iliopsoas stretch Side bilateral Reps/Minutes 5' Comments Extra time to position L off side, R off end of plinth for max stretch leann Lateral Hip stretch Supine Exercise Name Lateral Hip Stretch Side right Reps/Minutes 2' Comments Cuing for holding time 30 to 60 secs if tolerated Piriformis stretch Supine Exercise Name Piriformis stretch Side right Reps/Minutes 2' Comments Cuing for holding time 30 to 60 secs if tolerated LE neural/Hamstring stretch Supine Exercise Name LE neural/HS stretch, L>R Side bilateral Reps/Minutes 5' Comments Extra time for review, pt was doing wrong. Manual Therapy Treatment Soft Tissue Mobilization Sacral Balancing Body Location Sacrum/innominates Mobilization Type Myofascial Release,Sustained Pressure Intensity/Depth Superficial to Moderate Body Position Prone Comments Infer mob & PA of R Sacral sulcus. PA of R TINA. PA of R Ishium 6 pt balancing of sacrum. PT-OP-R Modalities Start: 10/02/22 17:42 Freq: Status: Active Protocol: Document 10/20/22 13:51 LRN (Rec: 10/20/22 17:23 LRN [id number]) Electric Stimulation Electric Stimulation Low back Body Location [L4-L5] Duration (Minutes) 10 Intensity 18 Target/Sweep Sweep Patient Position Hooklying Combined With Heat/Cold Cold Pack PT-OP-T Assessment and Plan Start: 10/02/22 17:42 Freq: Status: Active Protocol: Document 10/20/22 13:51 LRN (Rec: 10/20/22 14:37 LRN [id number]) Physical Therapy Assessment Goals Three Impairment Decreased strength Impairment Can't help roomate move things due to restriction in lifting things over 20#. Short Term Goal (STG) Pt will be able to maintain core stability with LE strengthening. STG Duration 11/07/22 Postal Worker Goal (LTG) Strengthen pt's back to be able to lift 20# or greater without onset of burning pain. LTG Duration 12/12/22 Two Impairment LB Pain, R buttock pain Impairment Pain rated 1-8/10. Pain is 1/10 unless lifting/ moving/ride bike (<30 secs tolerated). Short Term Goal (STG) Pt will be educated in use of modalities at home (heat/ice). 10/16/22: Educated in use of modalities for pain management and discussed in general RICE treatment for inujuries. STG Duration 10/10/23 (10/16/22: MET GOAL ) Jail Goal (LTG) Be able to tolerate riding in racing bike position (on pt's stationary field trainer) for 10 minutes. LTG Duration 12/12/22 One Impairment Lacks appropriate self care HEP. Short Term Goal (STG) Pt will be educated in proper body mechanics for transfer and ADLs, and proper sitting and standing posture. STG Duration 10/17/22 (10/09/22: MET GOAL) Postal Worker Goal (LTG) Independent with a self care HEP of core/pelvic stabilization and hip stretches. 10/13/22: HEP: LE neural/ hamstring, Piriformis, lateral hip, and Iliopsoas stretch; R UT stretch and R scap depression. LTG Duration 12/12/22 progressed Assessment Summary Assessment Pt has not used modalities for pain because he thought he was only supposed to use it for acute injuries. Pt now aware to use when having pain, but will need to check with follow through. To start: R ASIS is outflared, R pelvis posteriorly positioned, and R leg slightly long, s/p therapy pelvic outflare and leg length normalized, pelvis was slightly posterior. Pt had + response to IFES with R LBP rated 0/10 after treatment. Physical Therapy Plan Frequency and Duration Frequency of Treatment 2x/Week Plan of Care Start Date 10/06/22 Plan of Care End Date 12/12/22 Next Visit Focus/Plan Next Note Type Treatment Note Next Visit Plan Check if pt using modalities for pain to R LB and encourage use of ice to R SIJ. Assess response to manual thoracic mobs to correct L rotation if needed. Review R UT stretch and scapular depression. Initiate upright bike for pelvic stab, lifting strengthening, and progres Carson ext program (trunk extension strengthening) and core stab, Try End MH/IFES [L4-L5]. POC: Change to 1x/week with focus more on strengthening/ stabilizing core/pelvis. Initially noted L4-L5 bulging disc. Decrease soft tissue muscle guarding and pain, improve lumbar (rot and cautiously with flex)/hip ( PSLR, rot) mobility and for core/pelvic/hip stabilization.
--- NOTE | 2022-10-31 13:48 | PT.OTN ---
Current Diagnoses Muscle weakness (generalized) (10/31/22) Strain of muscle, fascia and tendon of lower back, subsequent encounter (10/31/22) Physical Therapy Treatment Note PT-OP-A Visit Information Start: 10/02/22 17:42 Freq: Status: Active Protocol: Document 10/31/22 13:07 SP (Rec: 10/31/22 13:51 SP [id number]) Out-Patient Physical Therapy Visit Information Visit Information Visit Type Treatment Note Visit Start Time 13:07 Visit Stop Time 13:48 Total Visit Minutes 41 Visit Number 6 Number of HEAD START COORDINATOR Visits 1 Evaluation Information Evaluation Date 10/06/22 Precautions Precautions Depression controlled by meds, Panic disorder, OCD, High blood pressure currently under control. PT-OP-B Current Condition Start: 10/02/22 17:42 Freq: Status: Active Protocol: Document 10/06/22 14:34 LRN (Rec: 10/06/22 16:34 LRN [id number]) Current Condition History of Current Condition Onset Date 11 weeks ago. Current Complaints Can't lift anything heavy and restricted in lifting. Not back to normal. History of Current Condition LBP ranges from 1-8/10 on 0-10 scale with 10 being worst possible pain. Pt states for the first month was sore, but after 1 month slept on new mattress and woke with terrible LBP. Stopped sleeping on new bed and is now on air mattress. Has improved ability to sleep and can now sleep all night. He has been doing cobra (reduces his pain) and dog yoga pose exercises. He has been practicing good posture and not lifting anything too heavy (25#, case of water is too heavy). Leaning forward on bike increases pain R handed. Prior Treatments and Tests No testing Developmental History Developmental History Helping friend move furnature and while lowering the furnature felt sharp pain in low back. Knew he wasn't using good Body mechanics because the chair was awkward and heavy. States he has tried to help his roomate move his mattress but was not able due to LBP. Treatment Goals Patient/Caregiver Goals Pt would like to strengthen back area, and be able to ride his bike on his stationary water trainer. Prior Functional Status Baseline Function- ADL's Independent Baseline Function- Mobility Independent Baseline Function- Work/School Unemployed Baseline Function- Recreation/Hobbies Play guitar Baseline Function- Other Lift heavy objects without burning sensation in low back. Be able to help roomate move things around the house (bed frame) without onset of burning back pain. Current Functional Impairments (Reported) Functional Limitations- ADL's Lifting 20# or greater. Personal Factors Other Personal Factors That May Effect Psychological disorders ( Therapy/Recovery depression, OCD, panic disorder). PT-OP-C Subjective Start: 10/02/22 17:42 Freq: Status: Active Protocol: Document 10/31/22 13:07 SP (Rec: 10/31/22 13:51 SP [id number]) OP-PT Subjective Patient Comments Patient Comments Pt reports L hip sore even after stretching last night. Wants to know if doing to far or to much or proper form. PT-OP-G Mobility & Gait Start: 10/02/22 17:42 Freq: Status: Active Protocol: Document 10/06/22 14:34 LRN (Rec: 10/06/22 16:34 LRN [id number]) OP Mobility Evaluation Bed Mobility Rolling Normal Supine to and from Sit Normal Transfers Sit to Stand Independent Bed to Chair Transfers Independent PT-OP-H Neuro Start: 10/02/22 17:42 Freq: Status: Active Protocol: Document 10/06/22 14:34 LRN (Rec: 10/06/22 16:34 LRN [id number]) Sensation Evaluation Gross Sensation Gross Sensation WNL PT-OP-J Posture/Palpation/Skin Start: 10/02/22 17:42 Freq: Status: Active Protocol: Document 10/06/22 14:34 LRN (Rec: 10/06/22 16:34 LRN [id number]) Posture Evaluation Position Standing Head/C-Spine Posture Forward Head T-Spine Posture Flattened L-Spine Posture Increased Lordosis,Shifted Left Shoulder Posture (R) Elevated Scapula Posture (R) Elevated Arm Posture (L) Internally Rotated,(R) Internally Rotated Pelvis Posture Anteriorly Tilted Weight Distribution Balanced Comments Posture Comments Soft tissue bump in R UT mid position. Palpation Assessment Location Low back Palpation Location R paraspinals, Spinous processes of lumbar spine. Palpation Findings Soft Tissue Tightness Palpation Details Tender at spinous process L4 with PA glide. PT-OP-K Range of Motion Start: 10/02/22 17:42 Freq: Status: Active Protocol: Document 10/06/22 14:34 LRN (Rec: 12/05/22 16:34 LRN [id number]) Lumbar Spine Range of Motion Lumbar Spine Active Degrees Flexion 65 Extension 7 Rotation Left 3 Rotation Right 3 Lateral Flexion Left 5 ROM Limitations Soft Tissue Tightness Comments Trunk Flexion is 65 deg?s with 52 deg?s hip flexion, Trunk extension is 7deg?s with 2 deg?s hip extension. Hip Goniometric Range of Motion Hip Right Passive Testing Position Supine Straight Leg Raise 65 Internal Rotation 20 External Rotation 65 Left Passive Testing Position Supine Straight Leg Raise 65 Internal Rotation 20 External Rotation 65 PT-OP-L Special Tests Start: 10/02/22 17:42 Freq: Status: Active Protocol: Document 10/06/22 14:34 LRN (Rec: 10/06/22 16:34 LRN [id number]) Special Tests Lumbar Spine Special Tests Wayne Test Results - bilaterally Prone Press Up Test Results + Comments Decreased discomfort Manual Traction Test Results + Comments Decreased LBP Straight Leg Raise Test Results 65 bilaterally Comments Hamstring tightness Slump Test Results + Comments R LB & hip pain Standing Flexion Test Results - Comments No change with pain Vertical Spine Loading Test Results - Comments No change with pain PT-OP-M Strength Start: 10/02/22 17:42 Freq: Status: Active Protocol: Document 10/09/22 11:18 LRN (Rec: 10/09/22 12:16 LRN [id number]) Hip Strength Hip Manual Muscle Testing Right External Rotation 4 Good Internal Rotation 3+ Fair+ Left External Rotation 4 Good Internal Rotation 3+ Fair+ PT-OP-Q Treatments Start: 10/02/22 17:42 Freq: Status: Active Protocol: Document 10/31/22 13:07 SP (Rec: 10/31/22 13:51 SP [id number]) Gym Equipment Therapeutic Ball core seated tball Exercise Details pelvic tilts AP/lateral, modified december (foot lift) Ball Size/Color 65cm Body Position seated Reps/Duration 8min Comments cues for stationary trunk/ upper body, LEs: just small core pelvic tilts rock forward/backward and lateral on sit bones, improved segmental pelvic tilts. prone over tball Exercise Details in PT: core Ts, Is, Ys Ball Size/Color 65cm Body Position Prone Reps/Duration 5 reps each Comments feet on wall, knee extension/ glut facilitation: cued glut fac. Pt unable to facilitate core and so discomfort in LB at this time- hold performing 10/31/22. Therapeutic Exercises Supine Exercises TA SLR Supine Exercise Name added to HEP: Side bilateral Reps/Minutes 5 reps x2 Comments cued TA/ LB toward table, improved wt control- good muscle tiring TA/ hip Ilipsoas stretch Supine Exercise Name Iliopsoas stretch Side bilateral Reps/Minutes 5' Comments Extra time to position L off side, R off end of plinth for max stretch leann Lateral Hip stretch Supine Exercise Name Lateral Hip Stretch Side right Equipment Used Cuing for holding time 30 to 60 secs if tolerated Comments 10 sec causes pain groin L, good feedback stretch R Piriformis stretch Supine Exercise Name Piriformis stretch Side right Reps/Minutes Cuing for holding time 30 to 60 secs if tolerated Comments little groin discomfort L ( told didn't need do end range pain L) LE neural/Hamstring stretch Supine Exercise Name LE neural/HS stretch, L>R Side bilateral Reps/Minutes 1 min each side Comments good form Prone Exercises bird dog Prone Exercise Name review self ex ( UE/ LE extension lift) Side bilateral Reps/Minutes 10 reps x15sec hold x2 sets Comments good form, stable elbow plank Prone Exercise Name trialed in PT Reps/Minutes 35 s before LB discomfort- hold for now 10/31/22 Comments cued alignment, scap complex serratus press, neutral PT Press Ups Prone Exercise Name Prone press ups- review self HEP- best relief back pain Reps/Minutes 10x Comments Reduction of pain slightly from L/S traction Sidelying Exercises side plank Sidelying Exercise Name reviewed self ex trying at home- added to HEP (give HO next tx) Side bilateral Resistance off knees/ elbow Equipment Used no HO Reps/Minutes 40 sec L, 30sec R, x2 reps each side Comments cued alignment, ankle neutral, scap SA press Sitting Exercises STS Sitting Exercise Name added end tx: give HO next tx- eccentric squat sits Resistance arms across chest Equipment Used 17 bench body solid Reps/Minutes x10 Comments improved eccentric control but WBOS stance- improve next tx Self-Care/Home Management Treatment Education Patient Education Home Exercise Program,Posture Other Education reviewed/ add HEP: self side plank off elbow/knees, added eccentric STS, PT-OP-R Modalities Start: 10/02/22 17:42 Freq: Status: Active Protocol: Document 10/20/22 13:51 LRN (Rec: 10/20/22 17:23 LRN [id number]) Electric Stimulation Electric Stimulation Low back Body Location [L4-L5] Duration (Minutes) 10 Intensity 18 Target/Sweep Sweep Patient Position Hooklying Combined With Heat/Cold Cold Pack PT-OP-T Assessment and Plan Start: 10/02/22 17:42 Freq: Status: Active Protocol: Document 10/31/22 13:07 SP (Rec: 10/31/22 13:51 SP [id number]) Physical Therapy Assessment Goals Three Impairment Decreased strength Impairment Can't help roomate move things due to restriction in lifting things over 20#. Short Term Goal (STG) Pt will be able to maintain core stability with LE strengthening. STG Duration 11/07/22 Usp Goal (LTG) Strengthen pt's back to be able to lift 20# or greater without onset of burning pain. LTG Duration 12/12/22 Two Impairment LB Pain, R buttock pain Impairment Pain rated 1-8/10. Pain is 1/10 unless lifting/ moving/ride bike (<30 secs tolerated). Short Term Goal (STG) Pt will be educated in use of modalities at home (heat/ice). 10/16/22: Educated in use of modalities for pain management and discussed in general RICE treatment for inujuries. STG Duration 10/10/23 (10/16/22: MET GOAL ) Usp Goal (LTG) Be able to tolerate riding in racing bike position (on pt's stationary water trainer) for 10 minutes. LTG Duration 12/12/22 One Impairment Lacks appropriate self care HEP. Short Term Goal (STG) Pt will be educated in proper body mechanics for transfer and ADLs, and proper sitting and standing posture. STG Duration 10/17/22 (10/09/22: MET GOAL) Forest Examiner Goal (LTG) Independent with a self care HEP of core/pelvic stabilization and hip stretches. 10/13/22: HEP: LE neural/ hamstring, Piriformis, lateral hip, and Iliopsoas stretch; R UT stretch and R scap depression. 10/31/22: reviewe self side plank off elbow/knees, LTG Duration 12/12/22 progressed Assessment Summary Assessment Pt improved stretching I HEP. Good tolerance to added core TA SLR, side plank, TA STS this tx, felt more support during activities. Next tx progress seated Tball, add TA pull downs/ shld ext, band walks. Physical Therapy Plan Frequency and Duration Frequency of Treatment 2x/Week Plan of Care Start Date 10/06/22 Plan of Care End Date 12/12/22 Therapeutic Interventions Therapeutic Interventions Home Exercise Program,Joint Mobilizations,Manual Therapy, Neuromuscular Re-education, Patient/Caregiver Education, Self-Care/Home Management,Soft Tissue Mobilization, Therapeutic Activities, Therapeutic Exercises Next Visit Focus/Plan Next Note Type Treatment Note Next Visit Plan add: core pull down, hip abd, band walk, check TA SLR, side plank. Check if pt using modalities for pain to R LB and encourage use of ice to R SIJ. Assess response to manual thoracic mobs to correct L rotation if needed. Review R UT stretch and scapular depression. Initiate upright bike for pelvic stab, lifting strengthening, and progres Carson ext program (trunk extension strengthening) and core stab, Try End MH/IFES [L4-L5]. POC: Change to 1x/week with focus more on strengthening/ stabilizing core/pelvis. Initially noted L4-L5 bulging disc. Decrease soft tissue muscle guarding and pain, improve lumbar (rot and cautiously with flex)/hip ( PSLR, rot) mobility and for core/pelvic/hip stabilization.
--- NOTE | 2022-11-04 15:29 | PT.OTN ---
Current Diagnoses Muscle weakness (generalized) (11/04/22) Strain of muscle, fascia and tendon of lower back, subsequent encounter (11/04/22) Physical Therapy Treatment Note PT-OP-A Visit Information Start: 10/02/22 17:42 Freq: Status: Active Protocol: Document 11/04/22 14:35 SP (Rec: 11/04/22 15:57 SP [id number]) Out-Patient Physical Therapy Visit Information Visit Information Visit Type Treatment Note Visit Start Time 14:35 Visit Stop Time 15:29 Total Visit Minutes 54 Visit Number 7 Number of BELT SANDER Visits 2 Evaluation Information Evaluation Date 10/06/22 Precautions Precautions Depression controlled by meds, Panic disorder, OCD, High blood pressure currently under control. PT-OP-B Current Condition Start: 10/02/22 17:42 Freq: Status: Active Protocol: Document 10/06/22 14:34 LRN (Rec: 10/06/22 16:34 LRN [id number]) Current Condition History of Current Condition Onset Date 11 weeks ago. Current Complaints Can't lift anything heavy and restricted in lifting. Not back to normal. History of Current Condition LBP ranges from 1-8/10 on 0-10 scale with 10 being worst possible pain. Pt states for the first month was sore, but after 1 month slept on new mattress and woke with terrible LBP. Stopped sleeping on new bed and is now on air mattress. Has improved ability to sleep and can now sleep all night. He has been doing cobra (reduces his pain) and dog yoga pose exercises. He has been practicing good posture and not lifting anything too heavy (25#, case of water is too heavy). Leaning forward on bike increases pain R handed. Prior Treatments and Tests No testing Developmental History Developmental History Helping friend move furnature and while lowering the furnature felt sharp pain in low back. Knew he wasn't using good Body mechanics because the chair was awkward and heavy. States he has tried to help his roomate move his mattress but was not able due to LBP. Treatment Goals Patient/Caregiver Goals Pt would like to strengthen back area, and be able to ride his bike on his stationary community development coordinator. Prior Functional Status Baseline Function- ADL's Independent Baseline Function- Mobility Independent Baseline Function- Work/School Unemployed Baseline Function- Recreation/Hobbies Play guitar Baseline Function- Other Lift heavy objects without burning sensation in low back. Be able to help roomate move things around the house (bed frame) without onset of burning back pain. Current Functional Impairments (Reported) Functional Limitations- ADL's Lifting 20# or greater. Personal Factors Other Personal Factors That May Effect Psychological disorders ( Therapy/Recovery depression, OCD, panic disorder). PT-OP-C Subjective Start: 10/02/22 17:42 Freq: Status: Active Protocol: Document 11/04/22 14:35 SP (Rec: 11/04/22 15:57 SP [id number]) OP-PT Subjective Patient Comments Patient Comments Pt reports LB was little sore after last tx but stretching helping and wants to start progressing in more strengthening for his back. He reported wants to join the gym and wants to know what can do safely there. PT-OP-G Mobility & Gait Start: 10/02/22 17:42 Freq: Status: Active Protocol: Document 10/06/22 14:34 LRN (Rec: 10/06/22 16:34 LRN [id number]) OP Mobility Evaluation Bed Mobility Rolling Normal Supine to and from Sit Normal Transfers Sit to Stand Independent Bed to Chair Transfers Independent PT-OP-H Neuro Start: 10/02/22 17:42 Freq: Status: Active Protocol: Document 10/06/22 14:34 LRN (Rec: 10/06/22 16:34 LRN [id number]) Sensation Evaluation Gross Sensation Gross Sensation WNL PT-OP-J Posture/Palpation/Skin Start: 10/02/22 17:42 Freq: Status: Active Protocol: Document 10/06/22 14:34 LRN (Rec: 10/06/22 16:34 LRN [id number]) Posture Evaluation Position Standing Head/C-Spine Posture Forward Head T-Spine Posture Flattened L-Spine Posture Increased Lordosis,Shifted Left Shoulder Posture (R) Elevated Scapula Posture (R) Elevated Arm Posture (L) Internally Rotated,(R) Internally Rotated Pelvis Posture Anteriorly Tilted Weight Distribution Balanced Comments Posture Comments Soft tissue bump in R UT mid position. Palpation Assessment Location Low back Palpation Location R paraspinals, Spinous processes of lumbar spine. Palpation Findings Soft Tissue Tightness Palpation Details Tender at spinous process L4 with PA glide. PT-OP-K Range of Motion Start: 10/02/22 17:42 Freq: Status: Active Protocol: Document 10/06/22 14:34 LRN (Rec: 10/06/22 16:34 LRN [id number]) Lumbar Spine Range of Motion Lumbar Spine Active Degrees Flexion 65 Extension 7 Rotation Left 3 Rotation Right 3 Lateral Flexion Left 5 ROM Limitations Soft Tissue Tightness Comments Trunk Flexion is 65 deg?s with 52 deg?s hip flexion, Trunk extension is 7deg?s with 2 deg?s hip extension. Hip Goniometric Range of Motion Hip Right Passive Testing Position Supine Straight Leg Raise 65 Internal Rotation 20 External Rotation 65 Left Passive Testing Position Supine Straight Leg Raise 65 Internal Rotation 20 External Rotation 65 PT-OP-L Special Tests Start: 10/02/22 17:42 Freq: Status: Active Protocol: Document 10/06/22 14:34 LRN (Rec: 10/06/22 16:34 LRN [id number]) Special Tests Lumbar Spine Special Tests Wayne Test Results - bilaterally Prone Press Up Test Results + Comments Decreased discomfort Manual Traction Test Results + Comments Decreased LBP Straight Leg Raise Test Results 65 bilaterally Comments Hamstring tightness Slump Test Results + Comments R LB & hip pain Standing Flexion Test Results - Comments No change with pain Vertical Spine Loading Test Results - Comments No change with pain PT-OP-M Strength Start: 10/02/22 17:42 Freq: Status: Active Protocol: Document 10/09/22 11:18 LRN (Rec: 10/09/22 12:16 LRN [id number]) Hip Strength Hip Manual Muscle Testing Right External Rotation 4 Good Internal Rotation 3+ Fair+ Left External Rotation 4 Good Internal Rotation 3+ Fair+ PT-OP-Q Treatments Start: 10/02/22 17:42 Freq: Status: Active Protocol: Document 11/04/22 14:35 SP (Rec: 11/04/22 15:57 SP [id number]) Gym Equipment Cable Column (Body Solid) Lat Pull Down Details cued LT scap depression stability, no UT recruitment Resistance 30# Reps/Time x10 Rows Details cued little PPT neutral LS and LT fac/ no UT recruitment Resistance 20# Reps/Time x10 reps Therapeutic Ball core seated tball Exercise Details pelvic tilts AP/lateral, modified march (foot lift), resisted row/ shld ext Ball Size/Color 65cm Body Position seated Reps/Duration 10min Comments cues for stationary trunk/ upper body, LEs: just small core pelvic tilts rock forward/backward and lateral on sit bones, improved segmental pelvic tilts. Therapeutic Exercises Supine Exercises TA SLR Supine Exercise Name reviewed HEP Side bilateral Reps/Minutes 5 reps x2 Comments cued TA/ LB toward table, improved wt control- good muscle tiring TA/ hip Sidelying Exercises open book Sidelying Exercise Name added to HEP Side bilateral Resistance AROM Equipment Used hand on head Reps/Minutes x5 Comments cued slow movement, scapular glide and TS rotation no UT, hip abd Sidelying Exercise Name added to HEP Side bilateral Reps/Minutes x10 Comments good slow pacing form, little core shake weakness noted- painfree side plank Sidelying Exercise Name reviewed self ex trying at home- added to HEP (give HO next tx) Side bilateral Resistance off knees/ elbow Equipment Used no HO Reps/Minutes 35sec B, x2 reps each side Comments cued alignment, ankle neutral, scap SA press Sitting Exercises STS Sitting Exercise Name added end tx: give HO next tx- eccentric squat sits Resistance arms across chest AROM, 5# DB held at chest Equipment Used 18 bench Reps/Minutes x10 each Comments improved eccentric control, LEs more // Standing Exercises resisted rows, shld ext Standing Exercise Name added to HEP (performed in sitting on 65 cm tball) check stnd carryover HEP Resistance Tb #2 Reps/Minutes 10 x2 Comments cued sit shlds over pelvis, neutral LS, no UT con/ eccentric- good core fac Self-Care/Home Management Treatment Education Patient Education Body Mechanics,Home Exercise Program,Posture Other Education reviewed: side plank off knees , able to extend top leg but decreased amt time, supine SLR Added to HEP: standing resisted shld ext/rows, side openbook, TA hip abd and resisted eccentric squat sits. Good response painfree and improved TA engagement. PT-OP-R Modalities Start: 10/02/22 17:42 Freq: Status: Active Protocol: Document 10/20/22 13:51 LRN (Rec: 10/20/22 17:23 LRN [id number]) Electric Stimulation Electric Stimulation Low back Body Location [L4-L5] Duration (Minutes) 10 Intensity 18 Target/Sweep Sweep Patient Position Hooklying Combined With Heat/Cold Cold Pack PT-OP-T Assessment and Plan Start: 10/02/22 17:42 Freq: Status: Active Protocol: Document 11/04/22 14:35 SP (Rec: 11/04/22 15:57 SP [id number]) Physical Therapy Assessment Goals Three Impairment Decreased strength Impairment Can't help roomate move things due to restriction in lifting things over 20#. Short Term Goal (STG) Pt will be able to maintain core stability with LE strengthening. 11/04/21: pt able to complete eccentric STS with 5# DB good form, painfree. STG Duration 11/07/22 progressing 11/04/21 Chicken Cleaner Goal (LTG) Strengthen pt's back to be able to lift 20# or greater without onset of burning pain. 11/04/21: pt able to complete eccentric STS with 5# DB good form, painfree. LTG Duration 12/12/22 progressing 11/04/21 Two Impairment LB Pain, R buttock pain Impairment Pain rated 1-8/10. Pain is 1/10 unless lifting/ moving/ride bike (<30 secs tolerated). Short Term Goal (STG) Pt will be educated in use of modalities at home (heat/ice). 10/16/22: Educated in use of modalities for pain management and discussed in general RICE treatment for inujuries. STG Duration 10/10/23 (10/16/22: MET GOAL ) Long-Term Goal (LTG) Be able to tolerate riding in racing bike position (on pt's stationary community development coordinator) for 10 minutes. LTG Duration 12/12/22 One Impairment Lacks appropriate self care HEP. Short Term Goal (STG) Pt will be educated in proper body mechanics for transfer and ADLs, and proper sitting and standing posture. STG Duration 10/17/22 (10/09/22: MET GOAL) Long-Term Goal (LTG) Independent with a self care HEP of core/pelvic stabilization and hip stretches. 10/13/22: HEP: LE neural/ hamstring, Piriformis, lateral hip, and Iliopsoas stretch; R UT stretch and R scap depression. 10/31/22: reviewe self side plank off elbow/knees, 11/04/21: added supine TA SLR, side TA hip abd, side plank off knees/able 15 top leg extended today, resisted rows/ shld ext, eccentric wt squats , painfree. LTG Duration 12/12/22 progressed 11/04/22 Assessment Summary Assessment Pt states self stretching has been beneficial, good response to added openbook TS AROM to allow segmental trunk rotation , painfree with added core supine, side, standing HEP today. See LTG #1 progression. Physical Therapy Plan Frequency and Duration Frequency of Treatment 2x/Week Plan of Care Start Date 10/06/22 Plan of Care End Date 12/12/22 Therapeutic Interventions Therapeutic Interventions Home Exercise Program,Joint Mobilizations,Manual Therapy, Neuromuscular Re-education, Patient/Caregiver Education, Self-Care/Home Management,Soft Tissue Mobilization, Therapeutic Activities, Therapeutic Exercises Next Visit Focus/Plan Next Note Type Treatment Note Next Visit Plan Warm up upright bike for pelvis stability. Recheck: plank top leg ext, standing resisted shld row/ext, hip abd , resisted squat. Next tx: add paloff press and maybe chops (resisted rotation TB) POC: Check if pt using modalities for pain to R LB and encourage use of ice to R SIJ. Assess response to manual thoracic mobs to correct L rotation if needed. Review R UT stretch and scapular depression. Initiate lifting strengthening, and progres Carson ext program (trunk extension strengthening) and core stab, Try End MH/IFES [L4-L5]. POC: Change to 1x/week with focus more on strengthening/ stabilizing core/pelvis. Initially noted L4-L5 bulging disc. Decrease soft tissue muscle guarding and pain, improve lumbar (rot and cautiously with flex)/hip ( PSLR, rot) mobility and for core/pelvic/hip stabilization.
--- NOTE | 2022-11-11 13:00 | PT.OTN ---
Current Diagnoses Muscle weakness (generalized) (11/11/22) Strain of muscle, fascia and tendon of lower back, subsequent encounter (11/11/22) Physical Therapy Treatment Note PT-OP-A Visit Information Start: 10/02/22 17:42 Freq: Status: Active Protocol: Document 11/11/22 12:16 SP (Rec: 11/11/22 13:03 SP [id number]) Out-Patient Physical Therapy Visit Information Visit Information Visit Type Treatment Note Visit Start Time 12:16 Visit Stop Time 01:30 Total Visit Minutes 44 Visit Number 8 Number of UNDER CUTTER Visits 3 Evaluation Information Evaluation Date 10/06/22 Precautions Precautions Depression controlled by meds, Panic disorder, OCD, High blood pressure currently under control. PT-OP-B Current Condition Start: 10/02/22 17:42 Freq: Status: Active Protocol: Document 10/06/22 14:34 LRN (Rec: 10/06/22 16:34 LRN [id number]) Current Condition History of Current Condition Onset Date 11 weeks ago. Current Complaints Can't lift anything heavy and restricted in lifting. Not back to normal. History of Current Condition LBP ranges from 1-8/10 on 0-10 scale with 10 being worst possible pain. Pt states for the first month was sore, but after 1 month slept on new mattress and woke with terrible LBP. Stopped sleeping on new bed and is now on air mattress. Has improved ability to sleep and can now sleep all night. He has been doing cobra (reduces his pain) and dog yoga pose exercises. He has been practicing good posture and not lifting anything too heavy (25#, case of water is too heavy). Leaning forward on bike increases pain R handed. Prior Treatments and Tests No testing Developmental History Developmental History Helping friend move furnature and while lowering the furnature felt sharp pain in low back. Knew he wasn't using good Body mechanics because the chair was awkward and heavy. States he has tried to help his roomate move his mattress but was not able due to LBP. Treatment Goals Patient/Caregiver Goals Pt would like to strengthen back area, and be able to ride his bike on his stationary customer trainer. Prior Functional Status Baseline Function- ADL's Independent Baseline Function- Mobility Independent Baseline Function- Work/School Unemployed Baseline Function- Recreation/Hobbies Play guitar Baseline Function- Other Lift heavy objects without burning sensation in low back. Be able to help roomate move things around the house (bed frame) without onset of burning back pain. Current Functional Impairments (Reported) Functional Limitations- ADL's Lifting 20# or greater. Personal Factors Other Personal Factors That May Effect Psychological disorders ( Therapy/Recovery depression, OCD, panic disorder). PT-OP-C Subjective Start: 10/02/22 17:42 Freq: Status: Active Protocol: Document 11/11/22 12:16 SP (Rec: 11/11/22 13:03 SP [id number]) OP-PT Subjective Patient Comments Patient Comments Pt reports little awareness of Lateral mid thoracic tension during gym pull down/ rows but not pain, good muscle work. PT-OP-G Mobility & Gait Start: 10/02/22 17:42 Freq: Status: Active Protocol: Document 10/06/22 14:34 LRN (Rec: 10/06/22 16:34 LRN [id number]) OP Mobility Evaluation Bed Mobility Rolling Normal Supine to and from Sit Normal Transfers Sit to Stand Independent Bed to Chair Transfers Independent PT-OP-H Neuro Start: 10/02/22 17:42 Freq: Status: Active Protocol: Document 10/06/22 14:34 LRN (Rec: 10/06/22 16:34 LRN [id number]) Sensation Evaluation Gross Sensation Gross Sensation WNL PT-OP-J Posture/Palpation/Skin Start: 10/02/22 17:42 Freq: Status: Active Protocol: Document 10/06/22 14:34 LRN (Rec: 10/06/22 16:34 LRN [id number]) Posture Evaluation Position Standing Head/C-Spine Posture Forward Head T-Spine Posture Flattened L-Spine Posture Increased Lordosis,Shifted Left Shoulder Posture (R) Elevated Scapula Posture (R) Elevated Arm Posture (L) Internally Rotated,(R) Internally Rotated Pelvis Posture Anteriorly Tilted Weight Distribution Balanced Comments Posture Comments Soft tissue bump in R UT mid position. Palpation Assessment Location Low back Palpation Location R paraspinals, Spinous processes of lumbar spine. Palpation Findings Soft Tissue Tightness Palpation Details Tender at spinous process L4 with PA glide. PT-OP-K Range of Motion Start: 10/02/22 17:42 Freq: Status: Active Protocol: Document 10/06/22 14:34 LRN (Rec: 10/06/22 16:34 LRN [id number]) Lumbar Spine Range of Motion Lumbar Spine Active Degrees Flexion 65 Extension 7 Rotation Left 3 Rotation Right 3 Lateral Flexion Left 5 ROM Limitations Soft Tissue Tightness Comments Trunk Flexion is 65 deg?s with 52 deg?s hip flexion, Trunk extension is 7deg?s with 2 deg?s hip extension. Hip Goniometric Range of Motion Hip Right Passive Testing Position Supine Straight Leg Raise 65 Internal Rotation 20 External Rotation 65 Left Passive Testing Position Supine Straight Leg Raise 65 Internal Rotation 20 External Rotation 65 PT-OP-L Special Tests Start: 10/02/22 17:42 Freq: Status: Active Protocol: Document 10/06/22 14:34 LRN (Rec: 10/06/22 16:34 LRN [id number]) Special Tests Lumbar Spine Special Tests Wayne Test Results - bilaterally Prone Press Up Test Results + Comments Decreased discomfort Manual Traction Test Results + Comments Decreased LBP Straight Leg Raise Test Results 65 bilaterally Comments Hamstring tightness Slump Test Results + Comments R LB & hip pain Standing Flexion Test Results - Comments No change with pain Vertical Spine Loading Test Results - Comments No change with pain PT-OP-M Strength Start: 10/02/22 17:42 Freq: Status: Active Protocol: Document 10/09/22 11:18 LRN (Rec: 10/09/22 12:16 LRN [id number]) Hip Strength Hip Manual Muscle Testing Right External Rotation 4 Good Internal Rotation 3+ Fair+ Left External Rotation 4 Good Internal Rotation 3+ Fair+ PT-OP-Q Treatments Start: 10/02/22 17:42 Freq: Status: Active Protocol: Document 11/11/22 12:16 SP (Rec: 11/11/22 13:03 SP [id number]) Gym Equipment Cable Column (Body Solid) Lat Pull Down Details good form and slow pacing Resistance #3 + 5lb plate Reps/Time x15 Rows Details good form and slow pacing Resistance #2 Reps/Time x15 reps Therapeutic Exercises Sidelying Exercises open book Sidelying Exercise Name reviewed HEP Side bilateral Resistance AROM Equipment Used long arm Reps/Minutes x5 reps, 2 breath hold Comments cued slow movement, scapular glide and TS rotation hip abd Sidelying Exercise Name HEP reviewed Side bilateral Reps/Minutes x15 reps (full lift/lower not allowing rest) Comments good slow pacing form, little core shake weakness noted- painfree side plank Sidelying Exercise Name reviewed self ex trying at home- added to HEP (give HO next tx) Side bilateral Resistance off knees/ elbow Equipment Used no HO Reps/Minutes 40 sec B, x2 reps each side Comments improved self corrections alignment Sitting Exercises STS Sitting Exercise Name HEP reviewed: air squat Resistance 5# DB at chest Equipment Used air squat Reps/Minutes x10 each Comments improved eccentric control, LEs more // Standing Exercises Lake/Reverse Lake Standing Exercise Name Added to HEP Side bilateral Reps/Minutes 2-5SH x5 reps Comments cued pelvis & front foot forward, bk ft perpendicular, scapt/ TS rotation Self-Care/Home Management Treatment Education Patient Education Body Mechanics,Home Exercise Program,Posture Other Education added air squat w/ DB, triangle/ reverse triangle to HEP, good feedback response. PT-OP-R Modalities Start: 10/02/22 17:42 Freq: Status: Active Protocol: Document 10/20/22 13:51 LRN (Rec: 10/20/22 17:23 LRN [id number]) Electric Stimulation Electric Stimulation Low back Body Location [L4-L5] Duration (Minutes) 10 Intensity 18 Target/Sweep Sweep Patient Position Hooklying Combined With Heat/Cold Cold Pack PT-OP-T Assessment and Plan Start: 10/02/22 17:42 Freq: Status: Active Protocol: Document 11/11/22 12:16 SP (Rec: 11/11/22 13:03 SP [id number]) Physical Therapy Assessment Goals Three Impairment Decreased strength Impairment Can't help roomate move things due to restriction in lifting things over 20#. Short Term Goal (STG) Pt will be able to maintain core stability with LE strengthening. 11/04/21: pt able to complete eccentric STS with 5# DB good form, painfree. STG Duration 11/07/22 progressing 11/04/21 Eligibility Manager Goal (LTG) Strengthen pt's back to be able to lift 20# or greater without onset of burning pain. 11/04/21: pt able to complete eccentric STS with 5# DB good form, painfree. LTG Duration 12/12/22 progressing 11/04/21 Two Impairment LB Pain, R buttock pain Impairment Pain rated 1-8/10. Pain is 1/10 unless lifting/ moving/ride bike (<30 secs tolerated). Short Term Goal (STG) Pt will be educated in use of modalities at home (heat/ice). 10/16/22: Educated in use of modalities for pain management and discussed in general RICE treatment for inujuries. STG Duration 10/10/23 (10/16/22: MET GOAL ) Eligibility Manager Goal (LTG) Be able to tolerate riding in racing bike position (on pt's stationary customer trainer) for 10 minutes. LTG Duration 12/12/22 One Impairment Lacks appropriate self care HEP. Short Term Goal (STG) Pt will be educated in proper body mechanics for transfer and ADLs, and proper sitting and standing posture. STG Duration 10/17/22 (10/09/22: MET GOAL) Jail Goal (LTG) Independent with a self care HEP of core/pelvic stabilization and hip stretches. 10/13/22: HEP: LE neural/ hamstring, Piriformis, lateral hip, and Iliopsoas stretch; R UT stretch and R scap depression. 10/31/22: reviewe self side plank off elbow/knees, 11/04/21: added supine TA SLR, side TA hip abd, side plank off knees/able 15 top leg extended today, resisted rows/ shld ext, eccentric wt squats , painfree. LTG Duration 12/12/22 progressed 11/04/22 Assessment Summary Assessment Pt improved core fac and self corrections with cues as needed during core gym ther ex and added progressed wt air squat and triangle/ reverse triangle during tx for strength, balance and back health with good feedback response will be helpful at gym and painfree throughout tx . Physical Therapy Plan Frequency and Duration Frequency of Treatment 2x/Week Plan of Care Start Date 10/06/22 Plan of Care End Date 12/12/22 Therapeutic Interventions Therapeutic Interventions Home Exercise Program,Joint Mobilizations,Manual Therapy, Neuromuscular Re-education, Patient/Caregiver Education, Self-Care/Home Management,Soft Tissue Mobilization, Therapeutic Activities, Therapeutic Exercises Next Visit Focus/Plan Next Note Type Treatment Note Next Visit Plan Warm up upright bike for pelvis stability. Recheck triangle, wt squat. Next tx: add paloff press and maybe chops (resisted rotation TB) POC: Check if pt using modalities for pain to R LB and encourage use of ice to R SIJ. Assess response to manual thoracic mobs to correct L rotation if needed. Review R UT stretch and scapular depression. Initiate lifting strengthening, and progres Carson ext program (trunk extension strengthening) and core stab, Try End MH/IFES [L4-L5]. POC: Change to 1x/week with focus more on strengthening/ stabilizing core/pelvis. Initially noted L4-L5 bulging disc. Decrease soft tissue muscle guarding and pain, improve lumbar (rot and cautiously with flex)/hip ( PSLR, rot) mobility and for core/pelvic/hip stabilization.
--- NOTE | 2022-11-14 15:59 | PT.OTN ---
Current Diagnoses Muscle weakness (generalized) (11/14/22) Strain of muscle, fascia and tendon of lower back, subsequent encounter (11/14/22) Physical Therapy Treatment Note PT-OP-A Visit Information Start: 10/02/22 17:42 Freq: Status: Active Protocol: Document 11/14/22 14:30 LRN (Rec: 11/14/22 15:57 LRN [id number]) Out-Patient Physical Therapy Visit Information Visit Information Visit Type Treatment Note Visit Start Time 14:30 Visit Stop Time 15:12 Total Visit Minutes 42 Visit Number 9 Evaluation Information Evaluation Date 10/06/22 Precautions Precautions Depression controlled by meds, Panic disorder, OCD, High blood pressure currently under control. PT-OP-B Current Condition Start: 10/02/22 17:42 Freq: Status: Active Protocol: Document 10/06/22 14:34 LRN (Rec: 10/06/22 16:34 LRN [id number]) Current Condition History of Current Condition Onset Date 11 weeks ago. Current Complaints Can't lift anything heavy and restricted in lifting. Not back to normal. History of Current Condition LBP ranges from 1-8/10 on 0-10 scale with 10 being worst possible pain. Pt states for the first month was sore, but after 1 month slept on new mattress and woke with terrible LBP. Stopped sleeping on new bed and is now on air mattress. Has improved ability to sleep and can now sleep all night. He has been doing cobra (reduces his pain) and dog yoga pose exercises. He has been practicing good posture and not lifting anything too heavy (25#, case of water is too heavy). Leaning forward on bike increases pain R handed. Prior Treatments and Tests No testing Developmental History Developmental History Helping friend move furnature and while lowering the furnature felt sharp pain in low back. Knew he wasn't using good Body mechanics because the chair was awkward and heavy. States he has tried to help his roomate move his mattress but was not able due to LBP. Treatment Goals Patient/Caregiver Goals Pt would like to strengthen back area, and be able to ride his bike on his stationary physical fitness trainer. Prior Functional Status Baseline Function- ADL's Independent Baseline Function- Mobility Independent Baseline Function- Work/School Unemployed Baseline Function- Recreation/Hobbies Play guitar Baseline Function- Other Lift heavy objects without burning sensation in low back. Be able to help roomate move things around the house (bed frame) without onset of burning back pain. Current Functional Impairments (Reported) Functional Limitations- ADL's Lifting 20# or greater. Personal Factors Other Personal Factors That May Effect Psychological disorders ( Therapy/Recovery depression, OCD, panic disorder). PT-OP-C Subjective Start: 10/02/22 17:42 Freq: Status: Active Protocol: Document 11/14/22 14:30 LRN (Rec: 11/14/22 15:57 LRN [id number]) OP-PT Subjective Patient Comments Patient Comments Now only problem is weakness in LB, but hasn't been trying to lift. PT-OP-G Mobility & Gait Start: 10/02/22 17:42 Freq: Status: Active Protocol: Document 10/06/22 14:34 LRN (Rec: 10/06/22 16:34 LRN [id number]) OP Mobility Evaluation Bed Mobility Rolling Normal Supine to and from Sit Normal Transfers Sit to Stand Independent Bed to Chair Transfers Independent PT-OP-H Neuro Start: 10/02/22 17:42 Freq: Status: Active Protocol: Document 10/06/22 14:34 LRN (Rec: 10/06/22 16:34 LRN [id number]) Sensation Evaluation Gross Sensation Gross Sensation WNL PT-OP-J Posture/Palpation/Skin Start: 10/02/22 17:42 Freq: Status: Active Protocol: Document 10/06/22 14:34 LRN (Rec: 10/06/22 16:34 LRN [id number]) Posture Evaluation Position Standing Head/C-Spine Posture Forward Head T-Spine Posture Flattened L-Spine Posture Increased Lordosis,Shifted Left Shoulder Posture (R) Elevated Scapula Posture (R) Elevated Arm Posture (L) Internally Rotated,(R) Internally Rotated Pelvis Posture Anteriorly Tilted Weight Distribution Balanced Comments Posture Comments Soft tissue bump in R UT mid position. Palpation Assessment Location Low back Palpation Location R paraspinals, Spinous processes of lumbar spine. Palpation Findings Soft Tissue Tightness Palpation Details Tender at spinous process L4 with PA glide. PT-OP-K Range of Motion Start: 10/02/22 17:42 Freq: Status: Active Protocol: Document 10/06/22 14:34 LRN (Rec: 10/06/22 16:34 LRN [id number]) Lumbar Spine Range of Motion Lumbar Spine Active Degrees Flexion 65 Extension 7 Rotation Left 3 Rotation Right 3 Lateral Flexion Left 5 ROM Limitations Soft Tissue Tightness Comments Trunk Flexion is 65 deg?s with 52 deg?s hip flexion, Trunk extension is 7deg?s with 2 deg?s hip extension. Hip Goniometric Range of Motion Hip Right Passive Testing Position Supine Straight Leg Raise 65 Internal Rotation 20 External Rotation 65 Left Passive Testing Position Supine Straight Leg Raise 65 Internal Rotation 20 External Rotation 65 PT-OP-L Special Tests Start: 10/02/22 17:42 Freq: Status: Active Protocol: Document 10/06/22 14:34 LRN (Rec: 10/06/22 16:34 LRN [id number]) Special Tests Lumbar Spine Special Tests Wayne Test Results - bilaterally Prone Press Up Test Results + Comments Decreased discomfort Manual Traction Test Results + Comments Decreased LBP Straight Leg Raise Test Results 65 bilaterally Comments Hamstring tightness Slump Test Results + Comments R LB & hip pain Standing Flexion Test Results - Comments No change with pain Vertical Spine Loading Test Results - Comments No change with pain PT-OP-M Strength Start: 10/02/22 17:42 Freq: Status: Active Protocol: Document 10/09/22 11:18 LRN (Rec: 10/09/22 12:16 LRN [id number]) Hip Strength Hip Manual Muscle Testing Right External Rotation 4 Good Internal Rotation 3+ Fair+ Left External Rotation 4 Good Internal Rotation 3+ Fair+ PT-OP-Q Treatments Start: 10/02/22 17:42 Freq: Status: Active Protocol: Document 11/14/22 14:30 LRN (Rec: 11/14/22 15:57 LRN [id number]) Cardio Equipment Bicycle (Upright) Duration (Minutes) 6 Resistance 6 Seat Position 7 Other Cuig to be on sit bones, TA tight Gym Equipment Cable Column (Body Solid) Lat Pull Down Details good form and slow pacing: hands mild and wide apart. Resistance #3 + 5lb plate Reps/Time x15 each Rows Details good form and slow pacing Resistance 3# Reps/Time 15 x 2 Therapeutic Exercises Sidelying Exercises open book Sidelying Exercise Name Open book - HEP Side bilateral Resistance AROM Equipment Used long arm Reps/Minutes x5 reps, 2 breath hold Comments cued slow movement, scapular glide and TS rotation side plank Sidelying Exercise Name Side plank - HEP Side bilateral Resistance off knees/ elbow Equipment Used no HO Reps/Minutes 30 sec B, x2 reps each side Comments improved self corrections alignment Standing Exercises D1 flex - Golf Swing Standing Exercise Name D1 - Golf swing with core stabilized Side bilateral Equipment Used Lev 2TB Reps/Minutes 15x each direction, cuing TA tight & breathe D2 ext - Wood Chop Standing Exercise Name D2 ext - Wood Chop w/core stabilized Side bilateral Equipment Used Lev 2TB Reps/Minutes 15x each direction, cuing TA tight & breathe Paloff Press Standing Exercise Name Paloff press Side bilateral Equipment Used Lev 2 TB Reps/Minutes 15x each Paulina/Reverse Paulina Standing Exercise Name Paulina/Reverse Paulina - HEP Side bilateral Reps/Minutes 2-5SH x5 reps Comments cued to not spread legs to Hamstring tightness tolerance. Self-Care/Home Management Treatment Education Patient Education Home Exercise Program Activities Self-Care/Home Management Activities Issued & reviewed added HEP: Paloff Press PT-OP-R Modalities Start: 10/02/22 17:42 Freq: Status: Active Protocol: Document 10/20/22 13:51 LRN (Rec: 10/20/22 17:23 LRN [id number]) Electric Stimulation Electric Stimulation Low back Body Location [L4-L5] Duration (Minutes) 10 Intensity 18 Target/Sweep Sweep Patient Position Hooklying Combined With Heat/Cold Cold Pack PT-OP-T Assessment and Plan Start: 10/02/22 17:42 Freq: Status: Active Protocol: Document 11/14/22 14:30 LRN (Rec: 11/14/22 15:57 LRN [id number]) Physical Therapy Assessment Goals Three Impairment Decreased strength Impairment Can't help roomate move things due to restriction in lifting things over 20#. Short Term Goal (STG) Pt will be able to maintain core stability with LE strengthening. 11/04/21: pt able to complete eccentric STS with 5# DB good form, painfree. STG Duration 11/07/22 progressing 11/04/21 Usp Goal (LTG) Strengthen pt's back to be able to lift 20# or greater without onset of burning pain. 11/04/21: pt able to complete eccentric STS with 5# DB good form, painfree. LTG Duration 12/12/22 progressing 11/04/21 Two Impairment LB Pain, R buttock pain Impairment Pain rated 1-8/10. Pain is 1/10 unless lifting/ moving/ride bike (<30 secs tolerated). Short Term Goal (STG) Pt will be educated in use of modalities at home (heat/ice). 10/16/22: Educated in use of modalities for pain management and discussed in general RICE treatment for inujuries. STG Duration 10/10/23 (10/16/22: MET GOAL ) Technician Automatic Goal (LTG) Be able to tolerate riding in racing bike position (on pt's stationary physical fitness trainer) for 10 minutes. LTG Duration 12/12/22 One Impairment Lacks appropriate self care HEP. Short Term Goal (STG) Pt will be educated in proper body mechanics for transfer and ADLs, and proper sitting and standing posture. STG Duration 10/17/22 (10/09/22: MET GOAL) Usp Goal (LTG) Independent with a self care HEP of core/pelvic stabilization and hip stretches. 10/13/22: HEP: LE neural/ hamstring, Piriformis, lateral hip, and Iliopsoas stretch; R UT stretch and R scap depression. 10/31/22: reviewed self side plank off elbow/knees, 11/04/21: added supine TA SLR, side TA hip abd, side plank off knees/able 15 top leg extended today, resisted rows/ shld ext, eccentric wt squats, painfree. 11/14/22: Added core strengthening - Paloff Press LTG Duration 12/12/22 progressed 11/14/22 Assessment Summary Assessment Pt tolerates new trunk ex's well without complaints of back pain. Pt able to perform triangle stretch and with good hamstring stretch. Pt appears to have decreased abdominal control in upper thoracic region, possible lack of trunk rotation strength. Physical Therapy Plan Frequency and Duration Frequency of Treatment 2x/Week Plan of Care Start Date 10/06/22 Plan of Care End Date 12/12/22 Next Visit Focus/Plan Next Note Type Progress Note Next Visit Plan Reassess for PN. Warm up upright bike for pelvis stability and progress towards riding tolerance in racing bike position. Recheck squat with wgts in hands, paloff press and PNF patterns. Review R UT stretch and scapular depression. Next tx: Add full trunk twist w/PNF patterns if no back pain (resisted rotation TB) POC: Check if pt using modalities for pain to R LB and encourage use of ice to R SIJ. Assess response to manual thoracic mobs to correct L rotation if needed. Progress lifting strengthening (to lift 20#), and progress Carson ext program (trunk extension strengthening) and core stab, MH/IFES [L4-L5] if needed for pain management. POC: Change to 1x/week with focus more on strengthening/ stabilizing core/pelvis. Initially noted L4-L5 bulging disc. Decrease soft tissue muscle guarding and pain, improve lumbar (rot and cautiously with flex)/hip ( PSLR, rot) mobility and for core/pelvic/hip stabilization.
--- NOTE | 2022-11-17 17:25 | PT.OTN ---
Current Diagnoses Muscle weakness (generalized) (11/17/22) Strain of muscle, fascia and tendon of lower back, subsequent encounter (11/17/22) Physical Therapy Treatment Note PT-OP-A Visit Information Start: 10/02/22 17:42 Freq: Status: Active Protocol: Document 11/17/22 13:03 LRN (Rec: 11/17/22 13:54 LRN [id number]) Out-Patient Physical Therapy Visit Information Visit Information Visit Type Progress Note Visit Start Time 13:03 Visit Stop Time 13:47 Total Visit Minutes 44 Visit Number 10 Evaluation Information Evaluation Date 10/06/22 Precautions Precautions Depression controlled by meds, Panic disorder, OCD, High blood pressure currently under control. PT-OP-B Current Condition Start: 10/02/22 17:42 Freq: Status: Active Protocol: Document 10/06/22 14:34 LRN (Rec: 10/06/22 16:34 LRN [id number]) Current Condition History of Current Condition Onset Date 11 weeks ago. Current Complaints Can't lift anything heavy and restricted in lifting. Not back to normal. History of Current Condition LBP ranges from 1-8/10 on 0-10 scale with 10 being worst possible pain. Pt states for the first month was sore, but after 1 month slept on new mattress and woke with terrible LBP. Stopped sleeping on new bed and is now on air mattress. Has improved ability to sleep and can now sleep all night. He has been doing cobra (reduces his pain) and dog yoga pose exercises. He has been practicing good posture and not lifting anything too heavy (25#, case of water is too heavy). Leaning forward on bike increases pain R handed. Prior Treatments and Tests No testing Developmental History Developmental History Helping friend move furnature and while lowering the furnature felt sharp pain in low back. Knew he wasn't using good Body mechanics because the chair was awkward and heavy. States he has tried to help his roomate move his mattress but was not able due to LBP. Treatment Goals Patient/Caregiver Goals Pt would like to strengthen back area, and be able to ride his bike on his stationary hardware trainer. Prior Functional Status Baseline Function- ADL's Independent Baseline Function- Mobility Independent Baseline Function- Work/School Unemployed Baseline Function- Recreation/Hobbies Play guitar Baseline Function- Other Lift heavy objects without burning sensation in low back. Be able to help roomate move things around the house (bed frame) without onset of burning back pain. Current Functional Impairments (Reported) Functional Limitations- ADL's Lifting 20# or greater. Personal Factors Other Personal Factors That May Effect Psychological disorders ( Therapy/Recovery depression, OCD, panic disorder). PT-OP-C Subjective Start: 10/02/22 17:42 Freq: Status: Active Protocol: Document 11/17/22 13:03 LRN (Rec: 11/17/22 13:54 LRN [id number]) OP-PT Subjective Patient Comments Patient Comments LBP is 1/10, can feel it in the one spot (R SIJ), but not a nerve pain. Able to lift 5 % or less without burning pain in LB. PT-OP-G Mobility & Gait Start: 10/02/22 17:42 Freq: Status: Active Protocol: Document 10/06/22 14:34 LRN (Rec: 10/06/22 16:34 LRN [id number]) OP Mobility Evaluation Bed Mobility Rolling Normal Supine to and from Sit Normal Transfers Sit to Stand Independent Bed to Chair Transfers Independent PT-OP-H Neuro Start: 10/02/22 17:42 Freq: Status: Active Protocol: Document 10/06/22 14:34 LRN (Rec: 10/06/22 16:34 LRN [id number]) Sensation Evaluation Gross Sensation Gross Sensation WNL PT-OP-J Posture/Palpation/Skin Start: 10/02/22 17:42 Freq: Status: Active Protocol: Document 10/06/22 14:34 LRN (Rec: 10/06/22 16:34 LRN [id number]) Posture Evaluation Position Standing Head/C-Spine Posture Forward Head T-Spine Posture Flattened L-Spine Posture Increased Lordosis,Shifted Left Shoulder Posture (R) Elevated Scapula Posture (R) Elevated Arm Posture (L) Internally Rotated,(R) Internally Rotated Pelvis Posture Anteriorly Tilted Weight Distribution Balanced Comments Posture Comments Soft tissue bump in R UT mid position. Palpation Assessment Location Low back Palpation Location R paraspinals, Spinous processes of lumbar spine. Palpation Findings Soft Tissue Tightness Palpation Details Tender at spinous process L4 with PA glide. PT-OP-K Range of Motion Start: 10/02/22 17:42 Freq: Status: Active Protocol: Document 11/17/22 13:03 LRN (Rec: 11/17/22 13:54 LRN [id number]) Hip Goniometric Range of Motion Hip Right Passive Testing Position Supine Straight Leg Raise 85 Internal Rotation 35 External Rotation 75 Left Passive Testing Position Supine Straight Leg Raise 75 Internal Rotation 30 External Rotation 65 PT-OP-L Special Tests Start: 10/02/22 17:42 Freq: Status: Active Protocol: Document 10/06/22 14:34 LRN (Rec: 10/06/22 16:34 LRN [id number]) Special Tests Lumbar Spine Special Tests Wayne Test Results - bilaterally Prone Press Up Test Results + Comments Decreased discomfort Manual Traction Test Results + Comments Decreased LBP Straight Leg Raise Test Results 65 bilaterally Comments Hamstring tightness Slump Test Results + Comments R LB & hip pain Standing Flexion Test Results - Comments No change with pain Vertical Spine Loading Test Results - Comments No change with pain PT-OP-M Strength Start: 10/02/22 17:42 Freq: Status: Active Protocol: Document 10/09/22 11:18 LRN (Rec: 10/09/22 12:16 LRN [id number]) Hip Strength Hip Manual Muscle Testing Right External Rotation 4 Good Internal Rotation 3+ Fair+ Left External Rotation 4 Good Internal Rotation 3+ Fair+ PT-OP-Q Treatments Start: 10/02/22 17:42 Freq: Status: Active Protocol: Document 11/17/22 13:03 LRN (Rec: 11/17/22 13:54 LRN [id number]) Cardio Equipment Bicycle (Upright) Duration (Minutes) 7 Resistance 12 Seat Position 7 Other 10 sec lean fwd w/straight back, every min Therapeutic Exercises Supine Exercises Ilipsoas stretch Supine Exercise Name Iliopsoas stretch Side bilateral Reps/Minutes 5' Comments Extra time to position L off side, R off end of plinth for max stretch leann Lateral Hip stretch Supine Exercise Name Lateral Hip Stretch-TFL stretch Side right Equipment Used Cuing for holding time 30 to 60 secs if tolerated Comments Comfortable stretch felt. Extra time take to determine comfortable stretch Piriformis stretch Supine Exercise Name Piriformis stretch Side right Reps/Minutes Cuing for holding time 30 to 60 secs if tolerated Comments little groin discomfort L ( told didn't need do end range pain L) LE neural/Hamstring stretch Supine Exercise Name LE neural/HS stretch, L>R Side bilateral Reps/Minutes 1 min each side Comments good form Standing Exercises Lifting Standing Exercise Name Lifting strengthening Equipment Used Dual Juanis 10#, 20# Reps/Minutes 2x, 10x, respectively Comments Extra time for proper body mechanics positioning prior to lifting. Manual Therapy Treatment Soft Tissue Mobilization Sacral Balancing Body Location Sacrum/innominates Mobilization Type Myofascial Release,Sustained Pressure Intensity/Depth Superficial to Moderate Body Position Prone Comments Infer mob & PA of R Sacral sulcus. Shear of L sacral border to R. PA of R TINA. PA of R Ishium PT-OP-R Modalities Start: 10/02/22 17:42 Freq: Status: Active Protocol: Document 10/20/22 13:51 LRN (Rec: 10/20/22 17:23 LRN [id number]) Electric Stimulation Electric Stimulation Low back Body Location [L4-L5] Duration (Minutes) 10 Intensity 18 Target/Sweep Sweep Patient Position Hooklying Combined With Heat/Cold Cold Pack PT-OP-T Assessment and Plan Start: 10/02/22 17:42 Freq: Status: Active Protocol: Document 11/17/22 13:03 LRN (Rec: 11/17/22 13:54 LRN [id number]) Physical Therapy Assessment Rehab Potential Rehabilitation Potential Good Evaluation Complexity Number of Personal Factors/Comorbidities 1-2 Number of Body Systems Impaired 4 or More Clinical Presentation at Evaluation Evolving Impairments Impairments Pain,ROM,Soft Tissue Mobility, Strength,Transfers Goals Three Impairment Decreased strength Impairment Can't help roomate move things due to restriction in lifting things over 20#. Short Term Goal (STG) Pt will be able to maintain core stability with LE strengthening. 11/04/21: pt able to complete eccentric STS with 5# DB good form, painfree. STG Duration 11/07/22 progressing 11/04/21 Custodial Goal (LTG) Strengthen pt's back to be able to lift 20# or greater without onset of burning pain. 11/04/21: pt able to complete eccentric STS with 5# DB good form, painfree. 11/17/22: Lifing nothing more than 5#. LTG Duration 12/12/22 progressing 11/17/21 Two Impairment LB Pain, R buttock pain Impairment Pain rated 1-8/10. Pain is 1/10 unless lifting/ moving/ride bike (<30 secs tolerated). Short Term Goal (STG) Pt will be educated in use of modalities at home (heat/ice). 10/16/22: Educated in use of modalities for pain management and discussed in general RICE treatment for inujuries. STG Duration 10/10/23 (10/16/22: MET GOAL ) Custodial Goal (LTG) Be able to tolerate riding in racing bike position (on pt's stationary hardware trainer) for 10 minutes. 11/17/22: Upright bike with 10 sec fwd lean every minute x 7 minutes. LTG Duration 12/12/22 progressing 11/17/22 . One Impairment Lacks appropriate self care HEP. Short Term Goal (STG) Pt will be educated in proper body mechanics for transfer and ADLs, and proper sitting and standing posture. STG Duration 10/17/22 (10/09/22: MET GOAL) Custodial Goal (LTG) Independent with a self care HEP of core/pelvic stabilization and hip stretches. 10/13/22: HEP: LE neural/ hamstring, Piriformis, lateral hip, and Iliopsoas stretch; R UT stretch and R scap depression. 11/17/22: HEP: R TFL stretch 10/31/22: reviewed self side plank off elbow/knees, 11/04/21: added supine TA SLR, side TA hip abd, side plank off knees/able 15 top leg extended today, resisted rows/ shld ext, eccentric wt squats, painfree. 11/14/22: Added core strengthening - Paloff Press 11/17/22: Added lateral hip/ TFL sidelie stretch LTG Duration 12/12/22 progressed 11/17/22 Progress Towards Goals Progress Comments Progressed HEP. Assessment Summary Assessment Pt demonstrates much improved hip mobility and stability of core (except with pelvic rot when moving LE's in supine). Pt is now able to perform a lift of 20# without sharp back pain, but has R SIJ pain, probably due to core & sacral instability; therefore further core/pelvic stabilization is needed to improve pt's function and ability to return to biking exercise for his general health. Extra time was needed today with ex's to determine max tolerated resistance and for proper positioning and execution of exercises. I recommend continuation of therapy for another 4 weeks to address his areas of dysfunction and achieve the above stated goals . Physical Therapy Plan Frequency and Duration Frequency of Treatment 1x/Week Plan of Care Start Date 11/17/22 Plan of Care End Date 01/01/23 Therapeutic Interventions Therapeutic Interventions Home Exercise Program,Joint Mobilizations,Manual Therapy, Neuromuscular Re-education, Orthotic/Prosthetic Management ,Patient/Caregiver Education, Self-Care/Home Management,Soft Tissue Mobilization, Therapeutic Exercises Modalities Cold Pack/Ice Massage,Electric Stimulation,Hot Packs Next Visit Focus/Plan Next Note Type Treatment Note Next Visit Plan Warm up upright bike for pelvis stability & progression towards riding tolerance in racing bike position. Assess response to Sacral balancing. Progress back strengthening for lifting progression tolerance. Recheck core stability with SLR, paloff press and PNF patterns. Review R UT stretch and scapular depression. Next tx: Add trunk twist w/PNF patterns if no back pain ( resisted rotation TB) Check if pt using modalities for pain to R LB and encourage use of ice to R SIJ. Assess response to manual thoracic mobs to correct L rotation if needed. Progress lifting strengthening (to lift 20# or greater), and progress Carson ext program (trunk extension strengthening) and core stab, POC: Rehab for L4-L5 bulging disc. 1x/week with focus on strengthening/stabilizing core /pelvis. Mobility improvement: lumbar (rot and cautiously with flex), normalize hip mobility (PSLR, rot), and Stab for core/pelvic /hip. If needed, decr soft tissue muscle guarding and pain and MH/IFES [L4-L5] if needed for pain.
--- NOTE | 2022-11-17 17:27 | PT.OTN ---
Current Diagnoses Muscle weakness (generalized) (11/17/22) Strain of muscle, fascia and tendon of lower back, subsequent encounter (11/17/22) Physical Therapy Treatment Note PT-OP-A Visit Information Start: 10/02/22 17:42 Freq: Status: Active Protocol: Document 11/17/22 13:03 LRN (Rec: 11/17/22 13:54 LRN [id number]) Out-Patient Physical Therapy Visit Information Visit Information Visit Type Progress Note Visit Start Time 13:03 Visit Stop Time 13:47 Total Visit Minutes 44 Visit Number 10 Evaluation Information Evaluation Date 10/06/22 Precautions Precautions Depression controlled by meds, Panic disorder, OCD, High blood pressure currently under control. PT-OP-B Current Condition Start: 10/02/22 17:42 Freq: Status: Active Protocol: Document 10/06/22 14:34 LRN (Rec: 10/06/22 16:34 LRN [id number]) Current Condition History of Current Condition Onset Date 11 weeks ago. Current Complaints Can't lift anything heavy and restricted in lifting. Not back to normal. History of Current Condition LBP ranges from 1-8/10 on 0-10 scale with 10 being worst possible pain. Pt states for the first month was sore, but after 1 month slept on new mattress and woke with terrible LBP. Stopped sleeping on new bed and is now on air mattress. Has improved ability to sleep and can now sleep all night. He has been doing cobra (reduces his pain) and dog yoga pose exercises. He has been practicing good posture and not lifting anything too heavy (25#, case of water is too heavy). Leaning forward on bike increases pain R handed. Prior Treatments and Tests No testing Developmental History Developmental History Helping friend move furnature and while lowering the furnature felt sharp pain in low back. Knew he wasn't using good Body mechanics because the chair was awkward and heavy. States he has tried to help his roomate move his mattress but was not able due to LBP. Treatment Goals Patient/Caregiver Goals Pt would like to strengthen back area, and be able to ride his bike on his stationary parent trainer. Prior Functional Status Baseline Function- ADL's Independent Baseline Function- Mobility Independent Baseline Function- Work/School Unemployed Baseline Function- Recreation/Hobbies Play guitar Baseline Function- Other Lift heavy objects without burning sensation in low back. Be able to help roomate move things around the house (bed frame) without onset of burning back pain. Current Functional Impairments (Reported) Functional Limitations- ADL's Lifting 20# or greater. Personal Factors Other Personal Factors That May Effect Psychological disorders ( Therapy/Recovery depression, OCD, panic disorder). PT-OP-C Subjective Start: 10/02/22 17:42 Freq: Status: Active Protocol: Document 11/17/22 13:03 LRN (Rec: 11/17/22 13:54 LRN [id number]) OP-PT Subjective Patient Comments Patient Comments LBP is 1/10, can feel it in the one spot (R SIJ), but not a nerve pain. Able to lift 5 % or less without burning pain in LB. PT-OP-G Mobility & Gait Start: 10/02/22 17:42 Freq: Status: Active Protocol: Document 10/06/22 14:34 LRN (Rec: 10/06/22 16:34 LRN [id number]) OP Mobility Evaluation Bed Mobility Rolling Normal Supine to and from Sit Normal Transfers Sit to Stand Independent Bed to Chair Transfers Independent PT-OP-H Neuro Start: 10/02/22 17:42 Freq: Status: Active Protocol: Document 10/06/22 14:34 LRN (Rec: 10/06/22 16:34 LRN [id number]) Sensation Evaluation Gross Sensation Gross Sensation WNL PT-OP-J Posture/Palpation/Skin Start: 10/02/22 17:42 Freq: Status: Active Protocol: Document 10/06/22 14:34 LRN (Rec: 10/06/22 16:34 LRN [id number]) Posture Evaluation Position Standing Head/C-Spine Posture Forward Head T-Spine Posture Flattened L-Spine Posture Increased Lordosis,Shifted Left Shoulder Posture (R) Elevated Scapula Posture (R) Elevated Arm Posture (L) Internally Rotated,(R) Internally Rotated Pelvis Posture Anteriorly Tilted Weight Distribution Balanced Comments Posture Comments Soft tissue bump in R UT mid position. Palpation Assessment Location Low back Palpation Location R paraspinals, Spinous processes of lumbar spine. Palpation Findings Soft Tissue Tightness Palpation Details Tender at spinous process L4 with PA glide. PT-OP-K Range of Motion Start: 10/02/22 17:42 Freq: Status: Active Protocol: Document 11/17/22 13:03 LRN (Rec: 11/17/22 13:54 LRN [id number]) Hip Goniometric Range of Motion Hip Right Passive Testing Position Supine Straight Leg Raise 85 Internal Rotation 35 External Rotation 75 Left Passive Testing Position Supine Straight Leg Raise 75 Internal Rotation 30 External Rotation 65 PT-OP-L Special Tests Start: 10/02/22 17:42 Freq: Status: Active Protocol: Document 10/06/22 14:34 LRN (Rec: 10/06/22 16:34 LRN [id number]) Special Tests Lumbar Spine Special Tests Wayne Test Results - bilaterally Prone Press Up Test Results + Comments Decreased discomfort Manual Traction Test Results + Comments Decreased LBP Straight Leg Raise Test Results 65 bilaterally Comments Hamstring tightness Slump Test Results + Comments R LB & hip pain Standing Flexion Test Results - Comments No change with pain Vertical Spine Loading Test Results - Comments No change with pain PT-OP-M Strength Start: 10/02/22 17:42 Freq: Status: Active Protocol: Document 10/09/22 11:18 LRN (Rec: 10/09/22 12:16 LRN [id number]) Hip Strength Hip Manual Muscle Testing Right External Rotation 4 Good Internal Rotation 3+ Fair+ Left External Rotation 4 Good Internal Rotation 3+ Fair+ PT-OP-Q Treatments Start: 10/02/22 17:42 Freq: Status: Active Protocol: Document 11/17/22 13:03 LRN (Rec: 11/17/22 13:54 LRN [id number]) Cardio Equipment Bicycle (Upright) Duration (Minutes) 7 Resistance 12 Seat Position 7 Other 10 sec lean fwd w/straight back, every min Therapeutic Exercises Supine Exercises Ilipsoas stretch Supine Exercise Name Iliopsoas stretch Side bilateral Reps/Minutes 5' Comments Extra time to position L off side, R off end of plinth for max stretch leann Lateral Hip stretch Supine Exercise Name Lateral Hip Stretch-TFL stretch Side right Equipment Used Cuing for holding time 30 to 60 secs if tolerated Comments Comfortable stretch felt. Extra time take to determine comfortable stretch Piriformis stretch Supine Exercise Name Piriformis stretch Side right Reps/Minutes Cuing for holding time 30 to 60 secs if tolerated Comments little groin discomfort L ( told didn't need do end range pain L) LE neural/Hamstring stretch Supine Exercise Name LE neural/HS stretch, L>R Side bilateral Reps/Minutes 1 min each side Comments good form Standing Exercises Lifting Standing Exercise Name Lifting strengthening Equipment Used Dual Juanis 10#, 20# Reps/Minutes 2x, 10x, respectively Comments Extra time for proper body mechanics positioning prior to lifting. Manual Therapy Treatment Soft Tissue Mobilization Sacral Balancing Body Location Sacrum/innominates Mobilization Type Myofascial Release,Sustained Pressure Intensity/Depth Superficial to Moderate Body Position Prone Comments Infer mob & PA of R Sacral sulcus. Shear of L sacral border to R. PA of R TINA. PA of R Ishium PT-OP-R Modalities Start: 10/02/22 17:42 Freq: Status: Active Protocol: Document 10/20/22 13:51 LRN (Rec: 10/20/22 17:23 LRN [id number]) Electric Stimulation Electric Stimulation Low back Body Location [L4-L5] Duration (Minutes) 10 Intensity 18 Target/Sweep Sweep Patient Position Hooklying Combined With Heat/Cold Cold Pack PT-OP-T Assessment and Plan Start: 10/02/22 17:42 Freq: Status: Active Protocol: Document 11/17/22 13:03 LRN (Rec: 11/17/22 13:54 LRN [id number]) Physical Therapy Assessment Rehab Potential Rehabilitation Potential Good Evaluation Complexity Number of Personal Factors/Comorbidities 1-2 Number of Body Systems Impaired 4 or More Clinical Presentation at Evaluation Evolving Impairments Impairments Pain,ROM,Soft Tissue Mobility, Strength,Transfers Goals Three Impairment Decreased strength Impairment Can't help roomate move things due to restriction in lifting things over 20#. Short Term Goal (STG) Pt will be able to maintain core stability with LE strengthening. 11/04/21: pt able to complete eccentric STS with 5# DB good form, painfree. STG Duration 12/12/22 progressing 11/04/21 Care Home Goal (LTG) Strengthen pt's back to be able to lift 20# or greater without onset of burning pain. 11/04/21: pt able to complete eccentric STS with 5# DB good form, painfree. 11/17/22: pt lifting nothing more than 5#. LTG Duration 01/01/23 progressing 11/17/21 Two Impairment LB Pain, R buttock pain Impairment Pain rated 1-8/10. Pain is 1/10 unless lifting/ moving/ride bike (<30 secs tolerated). Short Term Goal (STG) Pt will be educated in use of modalities at home (heat/ice). 10/16/22: Educated in use of modalities for pain management and discussed in general RICE treatment for inujuries. STG Duration 10/10/23 (10/16/22: MET GOAL ) Water Chemist Goal (LTG) Be able to tolerate riding in racing bike position (on pt's stationary parent trainer) for 10 minutes. 11/17/22: Upright bike with 10 sec fwd lean every minute x 7 minutes. LTG Duration 01/01/23 progressing 11/17/22. One Impairment Lacks appropriate self care HEP. Short Term Goal (STG) Pt will be educated in proper body mechanics for transfer and ADLs, and proper sitting and standing posture. STG Duration 10/17/22 (10/09/22: MET GOAL) Water Chemist Goal (LTG) Independent with a self care HEP of core/pelvic stabilization and hip stretches. 10/13/22: HEP: LE neural/ hamstring, Piriformis, lateral hip, and Iliopsoas stretch; R UT stretch and R scap depression. 11/17/22: HEP: R TFL stretch 10/31/22: reviewed self side plank off elbow/knees, 11/04/21: added supine TA SLR, side TA hip abd, side plank off knees/able 15 top leg extended today, resisted rows/ shld ext, eccentric wt squats, painfree. 11/14/22: Added core strengthening - Paloff Press 11/17/22: Added lateral hip/ TFL sidelie stretch LTG Duration 01/01/23 progressed 11/17/22 Progress Towards Goals Progress Comments Progressed HEP. Assessment Summary Assessment Pt demonstrates much improved hip mobility and stability of core (except with pelvic rot when moving LE's in supine). Pt is now able to perform a lift of 20# without sharp back pain, but has R SIJ pain, probably due to core & sacral instability; therefore further core/pelvic stabilization is needed to improve pt's function and ability to return to biking exercise for his general health. Extra time was needed today with ex's to determine max tolerated resistance and for proper positioning and execution of exercises. I recommend continuation of therapy for another 4 weeks to address his areas of dysfunction and achieve the above stated goals . Physical Therapy Plan Frequency and Duration Frequency of Treatment 1x/Week Plan of Care Start Date 11/17/22 Plan of Care End Date 01/01/23 Therapeutic Interventions Therapeutic Interventions Home Exercise Program,Joint Mobilizations,Manual Therapy, Neuromuscular Re-education, Orthotic/Prosthetic Management ,Patient/Caregiver Education, Self-Care/Home Management,Soft Tissue Mobilization, Therapeutic Exercises Modalities Cold Pack/Ice Massage,Electric Stimulation,Hot Packs Next Visit Focus/Plan Next Note Type Treatment Note Next Visit Plan Warm up upright bike for pelvis stability & progression towards riding tolerance in racing bike position. Assess response to Sacral balancing. Progress back strengthening for lifting progression tolerance. Recheck core stability with SLR, paloff press and PNF patterns. Review R UT stretch and scapular depression. Next tx: Add trunk twist w/PNF patterns if no back pain ( resisted rotation TB) Check if pt using modalities for pain to R LB and encourage use of ice to R SIJ. Assess response to manual thoracic mobs to correct L rotation if needed. Progress lifting strengthening (to lift 20# or greater), and progress Carson ext program (trunk extension strengthening) and core stab, POC: Rehab for L4-L5 bulging disc. 1x/week with focus on strengthening/stabilizing core /pelvis. Mobility improvement: lumbar (rot and cautiously with flex), normalize hip mobility (PSLR, rot), and Stab for core/pelvic /hip. If needed, decr soft tissue muscle guarding and pain and MH/IFES [L4-L5] if needed for pain.
--- NOTE | 2022-11-25 12:30 | PT.OTN ---
Current Diagnoses Muscle weakness (generalized) (11/25/22) Strain of muscle, fascia and tendon of lower back, subsequent encounter (11/25/22) Physical Therapy Treatment Note PT-OP-A Visit Information Start: 10/02/22 17:42 Freq: Status: Active Protocol: Document 11/25/22 09:52 LRN (Rec: 11/25/22 12:28 LRN [id number]) Out-Patient Physical Therapy Visit Information Visit Information Visit Type Treatment Note Visit Note 1 after PN Visit Start Time 09:52 Visit Stop Time 10:30 Total Visit Minutes 38 Visit Number 11 total, 03/13 PT-OP-B Current Condition Start: 10/02/22 17:42 Freq: Status: Active Protocol: Document 10/06/22 14:34 LRN (Rec: 10/06/22 16:34 LRN [id number]) Current Condition History of Current Condition Onset Date 11 weeks ago. Current Complaints Can't lift anything heavy and restricted in lifting. Not back to normal. History of Current Condition LBP ranges from 1-8/10 on 0-10 scale with 10 being worst possible pain. Pt states for the first month was sore, but after 1 month slept on new mattress and woke with terrible LBP. Stopped sleeping on new bed and is now on air mattress. Has improved ability to sleep and can now sleep all night. He has been doing cobra (reduces his pain) and dog yoga pose exercises. He has been practicing good posture and not lifting anything too heavy (25#, case of water is too heavy). Leaning forward on bike increases pain R handed. Prior Treatments and Tests No testing Developmental History Developmental History Helping friend move furnature and while lowering the furnature felt sharp pain in low back. Knew he wasn't using good Body mechanics because the chair was awkward and heavy. States he has tried to help his roomate move his mattress but was not able due to LBP. Treatment Goals Patient/Caregiver Goals Pt would like to strengthen back area, and be able to ride his bike on his stationary hardware trainer. Prior Functional Status Baseline Function- ADL's Independent Baseline Function- Mobility Independent Baseline Function- Work/School Unemployed Baseline Function- Recreation/Hobbies Play guitar Baseline Function- Other Lift heavy objects without burning sensation in low back. Be able to help roomate move things around the house (bed frame) without onset of burning back pain. Current Functional Impairments (Reported) Functional Limitations- ADL's Lifting 20# or greater. Personal Factors Other Personal Factors That May Effect Psychological disorders ( Therapy/Recovery depression, OCD, panic disorder). PT-OP-C Subjective Start: 10/02/22 17:42 Freq: Status: Active Protocol: Document 11/25/22 09:52 LRN (Rec: 11/25/22 12:28 LRN [id number]) OP-PT Subjective Patient Comments Patient Comments Going to gym 5 of 7 days, went 2 days ago. No pain where he normally feels it, just muscle soreness in the back PT-OP-G Mobility & Gait Start: 10/02/22 17:42 Freq: Status: Active Protocol: Document 10/06/22 14:34 LRN (Rec: 10/06/22 16:34 LRN [id number]) OP Mobility Evaluation Bed Mobility Rolling Normal Supine to and from Sit Normal Transfers Sit to Stand Independent Bed to Chair Transfers Independent PT-OP-H Neuro Start: 10/02/22 17:42 Freq: Status: Active Protocol: Document 10/06/22 14:34 LRN (Rec: 10/06/22 16:34 LRN [id number]) Sensation Evaluation Gross Sensation Gross Sensation WNL PT-OP-J Posture/Palpation/Skin Start: 10/02/22 17:42 Freq: Status: Active Protocol: Document 10/06/22 14:34 LRN (Rec: 10/06/22 16:34 LRN [id number]) Posture Evaluation Position Standing Head/C-Spine Posture Forward Head T-Spine Posture Flattened L-Spine Posture Increased Lordosis,Shifted Left Shoulder Posture (R) Elevated Scapula Posture (R) Elevated Arm Posture (L) Internally Rotated,(R) Internally Rotated Pelvis Posture Anteriorly Tilted Weight Distribution Balanced Comments Posture Comments Soft tissue bump in R UT mid position. Palpation Assessment Location Low back Palpation Location R paraspinals, Spinous processes of lumbar spine. Palpation Findings Soft Tissue Tightness Palpation Details Tender at spinous process L4 with PA glide. PT-OP-K Range of Motion Start: 10/02/22 17:42 Freq: Status: Active Protocol: Document 11/17/22 13:03 LRN (Rec: 11/17/22 13:54 LRN [id number]) Hip Goniometric Range of Motion Hip Right Passive Testing Position Supine Straight Leg Raise 85 Internal Rotation 35 External Rotation 75 Left Passive Testing Position Supine Straight Leg Raise 75 Internal Rotation 30 External Rotation 65 PT-OP-L Special Tests Start: 10/02/22 17:42 Freq: Status: Active Protocol: Document 10/06/22 14:34 LRN (Rec: 10/06/22 16:34 LRN [id number]) Special Tests Lumbar Spine Special Tests Wayne Test Results - bilaterally Prone Press Up Test Results + Comments Decreased discomfort Manual Traction Test Results + Comments Decreased LBP Straight Leg Raise Test Results 65 bilaterally Comments Hamstring tightness Slump Test Results + Comments R LB & hip pain Standing Flexion Test Results - Comments No change with pain Vertical Spine Loading Test Results - Comments No change with pain PT-OP-M Strength Start: 10/02/22 17:42 Freq: Status: Active Protocol: Document 10/09/22 11:18 LRN (Rec: 10/09/22 12:16 LRN [id number]) Hip Strength Hip Manual Muscle Testing Right External Rotation 4 Good Internal Rotation 3+ Fair+ Left External Rotation 4 Good Internal Rotation 3+ Fair+ PT-OP-Q Treatments Start: 10/02/22 17:42 Freq: Status: Active Protocol: Document 11/25/22 09:52 LRN (Rec: 11/25/22 12:28 LRN [id number]) Cardio Equipment Bicycle (Upright) Duration (Minutes) 8 Resistance 12 Seat Position 7 Other 15 sec lean fwd w/straight back, every min Gym Equipment Cable Column (Body Solid) Lat Pull Down Details good form and slow pacing: hands mild and wide apart. Resistance 35# Reps/Time 15x 2 Rows Details good form and slow pacing Resistance 30# Reps/Time 10 x 2 Therapeutic Exercises Supine Exercises TA SLR Supine Exercise Name TA/SLR Side bilateral Reps/Minutes 2x Comments Mild loss of core control w/ LLE MMT. Ilipsoas stretch Supine Exercise Name Iliopsoas stretch Side bilateral Reps/Minutes 5' Comments Extra time to position L off side, R off end of plinth for max stretch leann Lateral Hip stretch Supine Exercise Name Lateral Hip Stretch-TFL stretch Side bilateral Equipment Used Cuing for holding time 30 to 60 secs if tolerated Comments Comfortable stretch felt. Extra time take to determine comfortable stretch Piriformis stretch Supine Exercise Name Piriformis stretch Side bilateral Reps/Minutes Cuing for holding time 30 to 60 secs if tolerated Comments little groin discomfort L ( told didn't need do end range pain L) LE neural/Hamstring stretch Supine Exercise Name LE neural/HS stretch, L>R Side left Reps/Minutes 1 min each side Comments good form Standing Exercises D1 flex - Golf Swing Standing Exercise Name D1 - Golf swing with core stabilized Side bilateral Equipment Used Lev 3 TB Reps/Minutes 15x 2 each direction, cuing TA tight & breathe D2 ext - Wood Chop Standing Exercise Name D2 ext - Wood Chop w/core stabilized Side bilateral Equipment Used Lev 3 TB Reps/Minutes 15x 2 each direction, cuing TA tight & breathe Paloff Press Standing Exercise Name Paloff press Side bilateral Equipment Used Lev 3 TB Reps/Minutes 15x 2 each PT-OP-R Modalities Start: 10/02/22 17:42 Freq: Status: Active Protocol: Document 10/20/22 13:51 LRN (Rec: 10/20/22 17:23 LRN [id number]) Electric Stimulation Electric Stimulation Low back Body Location [L4-L5] Duration (Minutes) 10 Intensity 18 Target/Sweep Sweep Patient Position Hooklying Combined With Heat/Cold Cold Pack PT-OP-T Assessment and Plan Start: 10/02/22 17:42 Freq: Status: Active Protocol: Document 11/25/22 09:52 LRN (Rec: 11/25/22 12:28 LRN [id number]) Physical Therapy Assessment Goals Three Impairment Decreased strength Impairment Can't help roomate move things due to restriction in lifting things over 20#. Short Term Goal (STG) Pt will be able to maintain core stability with LE strengthening. 11/04/21: pt able to complete eccentric STS with 5# DB good form, painfree. STG Duration 12/12/22 progressing 11/04/21 [facility] Goal (LTG) Strengthen pt's back to be able to lift 20# or greater without onset of burning pain. 11/04/21: pt able to complete eccentric STS with 5# DB good form, painfree. 11/17/22: pt lifting nothing more than 5#. LTG Duration 01/01/23 progressing 11/17/21 Two Impairment LB Pain, R buttock pain Impairment Pain rated 1-8/10. Pain is 1/10 unless lifting/ moving/ride bike (<30 secs tolerated). Short Term Goal (STG) Pt will be educated in use of modalities at home (heat/ice). 10/16/22: Educated in use of modalities for pain management and discussed in general RICE treatment for inujuries. STG Duration 10/10/23 (10/16/22: MET GOAL ) Welding Machine Operator/Tender Goal (LTG) Be able to tolerate riding in racing bike position (on pt's stationary hardware trainer) for 10 minutes. 11/17/22: Upright bike with 10 sec fwd lean every minute x 7 minutes. LTG Duration 01/01/23 progressing 11/17/22. One Impairment Lacks appropriate self care HEP. Short Term Goal (STG) Pt will be educated in proper body mechanics for transfer and ADLs, and proper sitting and standing posture. STG Duration 10/17/22 (10/09/22: MET GOAL) Welding Machine Operator/Tender Goal (LTG) Independent with a self care HEP of core/pelvic stabilization and hip stretches. 10/13/22: HEP: LE neural/ hamstring, Piriformis, lateral hip, and Iliopsoas stretch; R UT stretch and R scap depression. 11/17/22: HEP: R TFL stretch 10/31/22: reviewed self side plank off elbow/knees, 11/04/21: added supine TA SLR, side TA hip abd, side plank off knees/able 15 top leg extended today, resisted rows/ shld ext, eccentric wt squats, painfree. 11/14/22: Added core strengthening - Paloff Press 11/17/22: Added lateral hip/ TFL sidelie stretch LTG Duration 01/01/23 progressed 11/17/22 Assessment Summary Assessment Appears to have had + response to sacral balancing. Yesterday was first day of not having R LBP. No c/o LBP or R hip pain post therapy today, good tolerance to core rotational exercises. Pt was able to maintain core stability with MMT of RLE, slight break in core control with MMT of LLE (pelvic L rot) . Pt doing well with scap depression with lat pull down strengthening. Physical Therapy Plan Frequency and Duration Frequency of Treatment 1x/Week Plan of Care Start Date 11/17/22 Plan of Care End Date 01/01/23 Next Visit Focus/Plan Next Note Type Treatment Note Next Visit Plan DC in 2-3 visits? Warm up upright bike for pelvis stability & progression towards riding tolerance in racing bike position (try increasing racing position in increments of 10-15 secs). Review R UT stretch. Progress core rot strengthening, focus on strengthening trunk/pelvic R rot. Back strengthening for lifting progression tolerance (to lift 20# or greater), and progress Carson ext program (trunk extension strengthening ). Check if pt using modalities for pain to R LB and encourage use of ice to R SIJ. Assess response to manual thoracic mobs to correct L rotation if needed. POC: Rehab for L4-L5 bulging disc. 1x/week with focus on strengthening/stabilizing core /pelvis. Mobility improvement: lumbar (rot and cautiously with flex), normalize hip mobility (PSLR, rot), and Stab for core/pelvic /hip. If needed, decr soft tissue muscle guarding and pain and MH/IFES [L4-L5] if needed for pain.
--- NOTE | 2022-12-02 14:45 | PT.OTN ---
Current Diagnoses Muscle weakness (generalized) (12/02/22) Strain of muscle, fascia and tendon of lower back, subsequent encounter (12/02/22) Physical Therapy Treatment Note PT-OP-A Visit Information Start: 10/02/22 17:42 Freq: Status: Active Protocol: Document 12/02/22 13:53 LRN (Rec: 12/02/22 14:44 LRN [id number]) Out-Patient Physical Therapy Visit Information Visit Information Visit Type Treatment Note Visit Note 2 after PN Visit Start Time 13:53 Visit Stop Time 14:34 Total Visit Minutes 41 Visit Number 12 total, 04/13 PT-OP-B Current Condition Start: 10/02/22 17:42 Freq: Status: Active Protocol: Document 10/06/22 14:34 LRN (Rec: 10/06/22 16:34 LRN [id number]) Current Condition History of Current Condition Onset Date 11 weeks ago. Current Complaints Can't lift anything heavy and restricted in lifting. Not back to normal. History of Current Condition LBP ranges from 1-8/10 on 0-10 scale with 10 being worst possible pain. Pt states for the first month was sore, but after 1 month slept on new mattress and woke with terrible LBP. Stopped sleeping on new bed and is now on air mattress. Has improved ability to sleep and can now sleep all night. He has been doing cobra (reduces his pain) and dog yoga pose exercises. He has been practicing good posture and not lifting anything too heavy (25#, case of water is too heavy). Leaning forward on bike increases pain R handed. Prior Treatments and Tests No testing Developmental History Developmental History Helping friend move furnature and while lowering the furnature felt sharp pain in low back. Knew he wasn't using good Body mechanics because the chair was awkward and heavy. States he has tried to help his roomate move his mattress but was not able due to LBP. Treatment Goals Patient/Caregiver Goals Pt would like to strengthen back area, and be able to ride his bike on his stationary first aid trainer. Prior Functional Status Baseline Function- ADL's Independent Baseline Function- Mobility Independent Baseline Function- Work/School Unemployed Baseline Function- Recreation/Hobbies Play guitar Baseline Function- Other Lift heavy objects without burning sensation in low back. Be able to help roomate move things around the house (bed frame) without onset of burning back pain. Current Functional Impairments (Reported) Functional Limitations- ADL's Lifting 20# or greater. Personal Factors Other Personal Factors That May Effect Psychological disorders ( Therapy/Recovery depression, OCD, panic disorder). PT-OP-C Subjective Start: 10/02/22 17:42 Freq: Status: Active Protocol: Document 12/02/22 13:53 LRN (Rec: 12/02/22 14:44 LRN [id number]) OP-PT Subjective Patient Comments Patient Comments States has not had any back pain since last session. Is up to biking foward every 30 secs for a 30 min bike time at local gym. PT-OP-G Mobility & Gait Start: 10/02/22 17:42 Freq: Status: Active Protocol: Document 10/06/22 14:34 LRN (Rec: 10/06/22 16:34 LRN [id number]) OP Mobility Evaluation Bed Mobility Rolling Normal Supine to and from Sit Normal Transfers Sit to Stand Independent Bed to Chair Transfers Independent PT-OP-H Neuro Start: 10/02/22 17:42 Freq: Status: Active Protocol: Document 10/06/22 14:34 LRN (Rec: 10/06/22 16:34 LRN [id number]) Sensation Evaluation Gross Sensation Gross Sensation WNL PT-OP-J Posture/Palpation/Skin Start: 10/02/22 17:42 Freq: Status: Active Protocol: Document 10/06/22 14:34 LRN (Rec: 10/06/22 16:34 LRN [id number]) Posture Evaluation Position Standing Head/C-Spine Posture Forward Head T-Spine Posture Flattened L-Spine Posture Increased Lordosis,Shifted Left Shoulder Posture (R) Elevated Scapula Posture (R) Elevated Arm Posture (L) Internally Rotated,(R) Internally Rotated Pelvis Posture Anteriorly Tilted Weight Distribution Balanced Comments Posture Comments Soft tissue bump in R UT mid position. Palpation Assessment Location Low back Palpation Location R paraspinals, Spinous processes of lumbar spine. Palpation Findings Soft Tissue Tightness Palpation Details Tender at spinous process L4 with PA glide. PT-OP-K Range of Motion Start: 10/02/22 17:42 Freq: Status: Active Protocol: Document 11/17/22 13:03 LRN (Rec: 11/17/22 13:54 LRN [id number]) Hip Goniometric Range of Motion Hip Right Passive Testing Position Supine Straight Leg Raise 85 Internal Rotation 35 External Rotation 75 Left Passive Testing Position Supine Straight Leg Raise 75 Internal Rotation 30 External Rotation 65 PT-OP-L Special Tests Start: 10/02/22 17:42 Freq: Status: Active Protocol: Document 10/06/22 14:34 LRN (Rec: 10/06/22 16:34 LRN [id number]) Special Tests Lumbar Spine Special Tests Wayne Test Results - bilaterally Prone Press Up Test Results + Comments Decreased discomfort Manual Traction Test Results + Comments Decreased LBP Straight Leg Raise Test Results 65 bilaterally Comments Hamstring tightness Slump Test Results + Comments R LB & hip pain Standing Flexion Test Results - Comments No change with pain Vertical Spine Loading Test Results - Comments No change with pain PT-OP-M Strength Start: 10/02/22 17:42 Freq: Status: Active Protocol: Document 10/09/22 11:18 LRN (Rec: 10/09/22 12:16 LRN [id number]) Hip Strength Hip Manual Muscle Testing Right External Rotation 4 Good Internal Rotation 3+ Fair+ Left External Rotation 4 Good Internal Rotation 3+ Fair+ PT-OP-Q Treatments Start: 10/02/22 17:42 Freq: Status: Active Protocol: Document 12/02/22 13:53 LRN (Rec: 12/02/22 14:44 LRN [id number]) Cardio Equipment Bicycle (Upright) Duration (Minutes) 8 Resistance 12 Seat Position 7 Other 45 sec lean fwd w/straight back, every min Gym Equipment Cable Column (Body Solid) D1 Flex Golf swing Details D1 - Golf swing with core stabilized Resistance 10# Reps/Time 10x D2 Ext Wood Chop Details D2 ext - Wood Chop w/core stabilized Resistance 10# Reps/Time 10x Paloff Press Details Paloff Press Resistance 20# R side close, 10# L side close, ~ 3' from source Lifting overhead Details Lifting from 4 holes showing from bottom on Dual Juanis w/ bar Resistance 25# Reps/Time 15x 2 Lifting Details Lifting from lowest setting on Dual Juanis w/ bar Resistance 25# Reps/Time 15x 2 Lat Pull Down Details good form and slow pacing: hands mild and wide apart. Resistance 40# Reps/Time 15x 2 Rows Details good form and slow pacing Resistance 35# Reps/Time 15 x 2 Therapeutic Exercises Sitting Exercises R UT stretch Sitting Exercise Name L SB of head while Sit on R hand and hold R hand w/opp hand Side right Reps/Minutes 3' Self-Care/Home Management Treatment Education Other Education Reviewed using modalities for pain to R LB and encourage use of ice to R SIJ if pain onset . PT-OP-R Modalities Start: 10/02/22 17:42 Freq: Status: Active Protocol: Document 10/20/22 13:51 LRN (Rec: 10/20/22 17:23 LRN [id number]) Electric Stimulation Electric Stimulation Low back Body Location [L4-L5] Duration (Minutes) 10 Intensity 18 Target/Sweep Sweep Patient Position Hooklying Combined With Heat/Cold Cold Pack PT-OP-T Assessment and Plan Start: 10/02/22 17:42 Freq: Status: Active Protocol: Document 12/02/22 13:53 LRN (Rec: 12/02/22 14:44 LRN [id number]) Physical Therapy Assessment Goals Three Impairment Decreased strength Impairment Can't help roomate move things due to restriction in lifting things over 20#. Short Term Goal (STG) Pt will be able to maintain core stability with LE strengthening. 11/04/21: pt able to complete eccentric STS with 5# DB good form, painfree. STG Duration 12/12/22 progressing 11/04/21 Skilled Nursing Goal (LTG) Strengthen pt's back to be able to lift 20# or greater without onset of burning pain. 11/04/21: pt able to complete eccentric STS with 5# DB good form, painfree. 11/17/22: pt lifting nothing more than 5#. LTG Duration 01/01/23 (MET GOAL 12/02/22) Two Impairment LB Pain, R buttock pain Impairment Pain rated 1-8/10. Pain is 1/10 unless lifting/ moving/ride bike (<30 secs tolerated). Short Term Goal (STG) Pt will be educated in use of modalities at home (heat/ice). 10/16/22: Educated in use of modalities for pain management and discussed in general RICE treatment for inujuries. STG Duration 10/10/23 (10/16/22: MET GOAL ) Skilled Nursing Goal (LTG) Be able to tolerate riding in racing bike position (on pt's stationary first aid trainer) for 10 minutes. 11/17/22: Upright bike with 10 sec fwd lean every minute x 7 minutes. LTG Duration 01/01/23 progressing 11/17/22. One Impairment Lacks appropriate self care HEP. Short Term Goal (STG) Pt will be educated in proper body mechanics for transfer and ADLs, and proper sitting and standing posture. STG Duration 10/17/22 (10/09/22: MET GOAL) Copier Technician Goal (LTG) Independent with a self care HEP of core/pelvic stabilization and hip stretches. 10/13/22: HEP: LE neural/ hamstring, Piriformis, lateral hip, and Iliopsoas stretch; R UT stretch and R scap depression. 11/17/22: HEP: R TFL stretch 10/31/22: reviewed self side plank off elbow/knees, 11/04/21: added supine TA SLR, side TA hip abd, side plank off knees/able 15 top leg extended today, resisted rows/ shld ext, eccentric wt squats, painfree. 11/14/22: Added core strengthening - Paloff Press 11/17/22: Added lateral hip/ TFL sidelie stretch LTG Duration 01/01/23 progressed 11/17/22 Assessment Summary Assessment Pt tolerated 45 lean fwd for cycling without onset of back pain. Pt able to increase wgt on back strengthening (see above). Pt having no discomfort with lifting to waist hgt or overhead, with only initial cuing for core tightening. Physical Therapy Plan Frequency and Duration Frequency of Treatment 1x/Week Plan of Care Start Date 11/17/22 Plan of Care End Date 01/01/23 Next Visit Focus/Plan Next Note Type Treatment Note Next Visit Plan Possible DC in 1-2 visits if pt remains painfree. 1x/2week if pt hasn't progressed to 10 ' on bike in form pt normally rides in. Warm up upright bike for pelvis stability & progression towards riding tolerance in racing bike position for full min up to 10 min. Remeasure lumbar & hip mobility. If pt conts to have no R SIJ pain, then recheck in 2 wks with pt progressing to 10' of biking in position on his own bike. Back strengthening, progress Carson ext program (trunk extension strengthening). Progress core rot strengthening, focus on strengthening trunk/pelvic R rot. Assess response to manual thoracic mobs to correct L rotation if needed. POC: Rehab for L4-L5 bulging disc. Mobility improvement: lumbar (rot and cautiously with flex), normalize hip mobility (PSLR, rot), and Stab for core/pelvic/hip. Modalities as needed for pain.
--- NOTE | 2022-12-08 17:00 | PT.OTN ---
Current Diagnoses Muscle weakness (generalized) (12/08/22) Strain of muscle, fascia and tendon of lower back, subsequent encounter (12/08/22) Physical Therapy Treatment Note PT-OP-A Visit Information Start: 10/02/22 17:42 Freq: Status: Active Protocol: Document 12/08/22 09:48 LRN (Rec: 12/08/22 12:24 LRN [id number]) Out-Patient Physical Therapy Visit Information Visit Information Visit Type Treatment Note Visit Note 3 after PN Visit Start Time 11:27 Visit Stop Time 12:15 Total Visit Minutes 48 Visit Number 13 total, 05/13 Evaluation Information Evaluation Date 10/06/22 Precautions Precautions Depression controlled by meds, Panic disorder, OCD, High blood pressure currently under control. PT-OP-B Current Condition Start: 10/02/22 17:42 Freq: Status: Active Protocol: Document 10/06/22 14:34 LRN (Rec: 10/06/22 16:34 LRN [id number]) Current Condition History of Current Condition Onset Date 11 weeks ago. Current Complaints Can't lift anything heavy and restricted in lifting. Not back to normal. History of Current Condition LBP ranges from 1-8/10 on 0-10 scale with 10 being worst possible pain. Pt states for the first month was sore, but after 1 month slept on new mattress and woke with terrible LBP. Stopped sleeping on new bed and is now on air mattress. Has improved ability to sleep and can now sleep all night. He has been doing cobra (reduces his pain) and dog yoga pose exercises. He has been practicing good posture and not lifting anything too heavy (25#, case of water is too heavy). Leaning forward on bike increases pain R handed. Prior Treatments and Tests No testing Developmental History Developmental History Helping friend move furnature and while lowering the furnature felt sharp pain in low back. Knew he wasn't using good Body mechanics because the chair was awkward and heavy. States he has tried to help his roomate move his mattress but was not able due to LBP. Treatment Goals Patient/Caregiver Goals Pt would like to strengthen back area, and be able to ride his bike on his stationary epic trainer. Prior Functional Status Baseline Function- ADL's Independent Baseline Function- Mobility Independent Baseline Function- Work/School Unemployed Baseline Function- Recreation/Hobbies Play guitar Baseline Function- Other Lift heavy objects without burning sensation in low back. Be able to help roomate move things around the house (bed frame) without onset of burning back pain. Current Functional Impairments (Reported) Functional Limitations- ADL's Lifting 20# or greater. Personal Factors Other Personal Factors That May Effect Psychological disorders ( Therapy/Recovery depression, OCD, panic disorder). PT-OP-C Subjective Start: 10/02/22 17:42 Freq: Status: Active Protocol: Document 12/08/22 09:48 LRN (Rec: 12/08/22 12:24 LRN [id number]) OP-PT Subjective Patient Comments Patient Comments Has built up to 1 minute of natural positioning for biking. States he feels ready for discharge to his [facility]. Pt is having no trouble or pain with ex's at home or at the local gym. States he is not limited in anything at home, but hasn't had to move anything. Has had no R buttock pain. Patient Questionnaires Oswestry Low Back Index Oswestry Score 4 Oswestry Impairment 1 to 19% Impaired (Score 1-19) PT-OP-G Mobility & Gait Start: 10/02/22 17:42 Freq: Status: Active Protocol: Document 10/06/22 14:34 LRN (Rec: 10/06/22 16:34 LRN [id number]) OP Mobility Evaluation Bed Mobility Rolling Normal Supine to and from Sit Normal Transfers Sit to Stand Independent Bed to Chair Transfers Independent PT-OP-H Neuro Start: 10/02/22 17:42 Freq: Status: Active Protocol: Document 10/06/22 14:34 LRN (Rec: 10/06/22 16:34 LRN [id number]) Sensation Evaluation Gross Sensation Gross Sensation WNL PT-OP-J Posture/Palpation/Skin Start: 10/02/22 17:42 Freq: Status: Active Protocol: Document 10/06/22 14:34 LRN (Rec: 10/06/22 16:34 LRN [id number]) Posture Evaluation Position Standing Head/C-Spine Posture Forward Head T-Spine Posture Flattened L-Spine Posture Increased Lordosis,Shifted Left Shoulder Posture (R) Elevated Scapula Posture (R) Elevated Arm Posture (L) Internally Rotated,(R) Internally Rotated Pelvis Posture Anteriorly Tilted Weight Distribution Balanced Comments Posture Comments Soft tissue bump in R UT mid position. Palpation Assessment Location Low back Palpation Location R paraspinals, Spinous processes of lumbar spine. Palpation Findings Soft Tissue Tightness Palpation Details Tender at spinous process L4 with PA glide. PT-OP-K Range of Motion Start: 10/02/22 17:42 Freq: Status: Active Protocol: Document 12/08/22 09:48 LRN (Rec: 12/08/22 12:24 LRN [id number]) Lumbar Spine Range of Motion Lumbar Spine Active Degrees Testing Position Standing Flexion 70 Extension 7 Rotation Left 30 Rotation Right 25 Lateral Flexion Left 10 Lateral Flexion Right 8 ROM Limitations Soft Tissue Tightness Comments Trunk Flexion is 70 deg?s with 55 deg?s hip flexion, Trunk extension is 8 deg?s with 5 deg?s hip extension. Hip Goniometric Range of Motion Hip Right Passive Testing Position Supine Straight Leg Raise 85 Internal Rotation 25 External Rotation 65 Left Passive Testing Position Supine Straight Leg Raise 85 Internal Rotation 25 External Rotation 65 PT-OP-L Special Tests Start: 10/02/22 17:42 Freq: Status: Active Protocol: Document 10/06/22 14:34 LRN (Rec: 10/06/22 16:34 LRN [id number]) Special Tests Lumbar Spine Special Tests Wayne Test Results - bilaterally Prone Press Up Test Results + Comments Decreased discomfort Manual Traction Test Results + Comments Decreased LBP Straight Leg Raise Test Results 65 bilaterally Comments Hamstring tightness Slump Test Results + Comments R LB & hip pain Standing Flexion Test Results - Comments No change with pain Vertical Spine Loading Test Results - Comments No change with pain PT-OP-M Strength Start: 10/02/22 17:42 Freq: Status: Active Protocol: Document 12/08/22 09:48 LRN (Rec: 12/08/22 12:24 LRN [id number]) Trunk Strength Trunk Manual Muscle Testing Comments Mild loss of stability with MMT of hip ext, R>L. Hip Strength Hip Manual Muscle Testing Right Comments Generally 5/5 Left Comments Generally 5/5 PT-OP-Q Treatments Start: 10/02/22 17:42 Freq: Status: Active Protocol: Document 12/08/22 09:48 LRN (Rec: 12/08/22 12:24 LRN [id number]) Cardio Equipment Bicycle (Upright) Duration (Minutes) 8 Resistance 12 Seat Position 7 Other 90 secs lean fwd w/straight back, every min Gym Equipment Cable Column (Body Solid) D1 Flex Golf swing Details D1 - Golf swing with core stabilized Resistance 15# Reps/Time 10x D2 Ext Wood Chop Details D2 ext - Wood Chop w/core stabilized Resistance 10# Reps/Time 10x Paloff Press Details Paloff Press - bilaterally Resistance 15# ~ 2' from source Reps/Time 15x Therapeutic Exercises Supine Exercises Hip flex Supine Exercise Name Hip Flex Side bilateral Comments MMT taken Ilipsoas stretch Supine Exercise Name Iliopsoas stretch Side bilateral Reps/Minutes 5' Comments Extra time to position L off side, R off end of plinth for max stretch leann Lateral Hip stretch Supine Exercise Name Lateral Hip Stretch-TFL stretch Side bilateral Equipment Used Cuing for holding time 30 to 60 secs if tolerated Comments Comfortable stretch felt. PROM taken Piriformis stretch Supine Exercise Name Piriformis stretch Side bilateral Reps/Minutes Cuing for holding time 30 to 60 secs if tolerated Comments PROM taken LE neural/Hamstring stretch Supine Exercise Name LE neural/HS stretch, L>R Side bilateral Reps/Minutes 1 min each side Comments good form, PROM taken Prone Exercises Hip Ext Prone Exercise Name Hip Ext Side bilateral Comments MMT Taken Sidelying Exercises hip abd Sidelying Exercise Name Hip AB/AD Side bilateral Comments MMT taken Sitting Exercises Hip ER/IR Sitting Exercise Name Hip ER/IR Side bilateral Comments MMT taken Standing Exercises Trunk AROM Standing Exercise Name Trunk AROM Side bilateral Comments ROM taken PT-OP-R Modalities Start: 10/02/22 17:42 Freq: Status: Active Protocol: Document 10/20/22 13:51 LRN (Rec: 10/20/22 17:23 LRN [id number]) Electric Stimulation Electric Stimulation Low back Body Location [L4-L5] Duration (Minutes) 10 Intensity 18 Target/Sweep Sweep Patient Position Hooklying Combined With Heat/Cold Cold Pack PT-OP-T Assessment and Plan Start: 10/02/22 17:42 Freq: Status: Active Protocol: Document 12/08/22 09:48 LRN (Rec: 12/08/22 12:24 LRN [id number]) Physical Therapy Assessment Goals Three Impairment Decreased strength Impairment Can't help roomate move things due to restriction in lifting things over 20#. Short Term Goal (STG) Pt will be able to maintain core stability with LE strengthening. 11/04/21: pt able to complete eccentric STS with 5# DB good form, painfree. 12/08/22: Pt abl to maintain core stability with LE strengthening except mild loss of stability with hip ext STG Duration 12/12/22 (12/08/22: Mostly MET GOAL) Halfway Goal (LTG) Strengthen pt's back to be able to lift 20# or greater without onset of burning pain. 11/04/21: pt able to complete eccentric STS with 5# DB good form, painfree. 11/17/22: pt lifting nothing more than 5#. LTG Duration 01/01/23 (MET GOAL 12/02/22) Two Impairment LB Pain, R buttock pain Impairment Pain rated 1-8/10. Pain is 1/10 unless lifting/ moving/ride bike (<30 secs tolerated). Short Term Goal (STG) Pt will be educated in use of modalities at home (heat/ice). 10/16/22: Educated in use of modalities for pain management and discussed in general RICE treatment for inujuries. STG Duration 10/10/23 (10/16/22: MET GOAL ) Conditioner Tender Goal (LTG) Be able to tolerate riding in racing bike position (on pt's stationary epic trainer) for 10 minutes. 11/17/22: Upright bike with 10 sec fwd lean every minute x 7 minutes. 12/08/22: Upright bike with 90 sec fwd lean every 2 mins throughout 10 min ex bike ex. LTG Duration 01/01/23 (12/08/22: MET GOAL) One Impairment Lacks appropriate self care HEP. Short Term Goal (STG) Pt will be educated in proper body mechanics for transfer and ADLs, and proper sitting and standing posture. STG Duration 10/17/22 (10/09/22: MET GOAL) Halfway Goal (LTG) Independent with a self care HEP of core/pelvic stabilization and hip stretches. 10/13/22: HEP: LE neural/ hamstring, Piriformis, lateral hip, and Iliopsoas stretch; R UT stretch and R scap depression. 11/17/22: HEP: R TFL stretch 10/31/22: reviewed self side plank off elbow/knees, 11/04/21: added supine TA SLR, side TA hip abd, side plank off knees/able 15 top leg extended today, resisted rows/ shld ext, eccentric wt squats, painfree. 11/14/22: Added core strengthening - Paloff Press 11/17/22: Added lateral hip/ TFL sidelie stretch LTG Duration 01/01/23 (12/08/22: MET GOAL) Assessment Summary Assessment Pt had no c/o back or R hip pain in general and no pain with 10 min biking while leaning fwd for 90 secs every 2 minutes. Pt has mild abdominal weakness noted with trunk AROM of ext, as observed with lack of stability on MMT , and with standing trunk extension pt was not engaging abdominals and appeared to be hinging on the hips. Pt appears to have a good understanding of areas to improve upon and on how to continue progressing tolerance to ex biking and core strengthening. Hip mobility is symmetrical. Trunk mobility is without pain and slightly improved, although not significantly improved. Pt moves with a straight upper spine as a protective pattern with forward bend, due to hamstring tightness limiting his lower lumbar/hip flex mobility. Pt is aware of his areas of weakness and how to progress his biking tolerance, and is on a HEP to address mobility issues and core weakness; therefore the pt is ready to be discharged to his independent HEP. Physical Therapy Plan Discharge Physical Therapy Discharge Reasons Goals Met Discharge Comments Thank you for your referral.
== END 2022-12-09 12:30 | disposition home or self-care (01) ==
LOC: PHYS 11:15
PROVIDERS: Family Provider Family Medicine; PCP Family Medicine; Referring Provider Family Medicine; Visit Provider Family Medicine
DX: S39.012D Strain of muscle, fascia and tendon of lower back, subsequent encounter (principal); M62.81 Muscle weakness (generalized)
CPT/HCPCS: 97110; 97140; 97162; 97535